=== PATIENT | female | born 1985 | race Caucasian/White ===

== ENCOUNTER 2020-07-13 17:27 | Inpatient (IN) | payer MEDICAID, SELFPAY ==
[2020-07-13 17:28] VITALS: BP 149/84; PULSE 106; RESP 16; TEMP 35.3; O2SAT 100; BMI 29.2
[2020-07-13 19:33] VITALS: BMI 29.2
--- NOTE | 2020-07-13 20:00 | ED.VISSUMM ---
- ER Visit Summary Date of Service: 07/13/20 Chief Complaint: Here for detox from heroin History of Present Illness: The patient is a 35 F with no primary care physician. She reports that she has been using heroin daily for the past 6 months. States that typically she snorts this. However, she does use intravenously occasionally. Her last use was yesterday and she injected into the anterior surface of her right leg. Patient reports that she is never been through detox. However, in the middle of 2019 she was on Suboxone for a period of time. Patient reports that she feels as though she is starting to go through withdrawal. She has chills and a dull headache is 4-10 in severity. She does have a history of similar headaches. Physical Examination: Vitals: Stable. Afebrile. General: Well-nourished and well-developed. Head: Normocephalic atraumatic. Neck: Supple, no lymphadenopathy. No JVD. Nontender. Cardiovascular: Regular rate and rhythm. No murmurs. Respiratory: No respiratory distress. Clear to auscultation bilaterally. Abdominal: Soft, nontender, nondistended, normal bowel sounds. No guarding, rebound, or peritoneal signs. Back: Nontender. Extremities: Nontender, no edema. Skin: Normal color, no rash. Track braga to the anterior right leg with no evidence of infection. No induration or fluctuance. Neurologic: Alert and oriented ?3. Cranial nerves II through XII are intact. Normal strength and sensation. Psych: Normal affect. Test Results: [] Emergency Department Course and Treatment: Patient is resting comfortably. Treatment Plan: Patient was discussed with Dr. Delgado. She will be admitted the hospital for further evaluation and treatment. Disposition: Admitted in stable condition. Impression: 1. Opiate abuse. This note was generated with [employer] software. It may contain incorrect words, spelling, and punctuation that were not noted in review of the chart prior to signing ED Disposition - Plan for ED Patient: Referrals: Care Physician,No Primary [Primary Care Provider] -
[2020-07-13 20:06] VITALS: BMI 29.2
--- NOTE | 2020-07-13 20:19 | PCM.HP.STD ---
Problem List (1) Opiate withdrawal Status: Acute (2) Heroin use Status: Chronic (3) IV drug abuse Status: Chronic (4) Tobacco use Status: Chronic History of Present Illness Date of Admission: 07/13/20 Chief Complaint: Acute Opiate Withdrawal The patient is a 35 y/o F w/ PMHx: History of opiate abuse with ongoing heroin initially snorted now transition to IV over the last 6 months, Tobacco use who presents to the [facility] ED on 07/13/20 with acute onset withdrawal symptoms over the last several hours with last IV 1 g administration approximately 1 AM on day of ED presentation noting that she normally does 1/2 to 1 g heroin IV daily but cannot be certain that there is nothing mixed in with it she notes now with onset significant abdominal cramping, generalized body aches and pains, rhinorrhea, piloerection, fatigue, restless leg, sweating, doubly flushed appearance. Patient interested in attaining clean status. She does note being nervous about admission and states that she was been anxious about using Subutex. Work-up in the ED included T 95.5 temporally, heart rate 106, BP 149/84, respiratory rate 16, on her percent on room air, pending CBC, CMP, serum testing and did note to patient that as long as serum testing would plan continued admission as noted, UDS with positive opiates otherwise negative, pending ethyl alcohol level. Past Medical History Past Medical History (Chronic Problems): Chronic Problems Heroin use (Chronic) IV drug abuse (Chronic) Tobacco use (Chronic) Allergies Penicillins [PCN] Allergy (Verified 07/13/20 17:29) Rash Home Medications: Ambulatory Orders Medication Instructions Recorded NK 07/13/20 Surgical History: no surgical history Psychiatric History: No pertinent psych hx - Patient denies anxiety depression. PRACTICE CONSULTANT History: No pertinent PRACTICE CONSULTANT history Lives: Alone Smoking Status: Current every day smoker - Patient with ongoing 3/4 to 1 pack/day cigarette tobacco usage. Tobacco Use: Cigarettes Alcohol: None Drugs: Heroin - Patient reports 1/2 to 1 g IV heroin daily, prior to this snorted, reporting over the last 6 months usage. - *Family History Maternal History Items: Stroke Paternal History Items: - - Patient denies marked paternal family history including heart disease, diabetes, cancer but does report has chronic back pain and uses chronic pain regimen. Review of Systems Constitutional: Reports: Anorexia, Malaise, Weakness, Fatigue. Denies: Chills, Fever, Weight Change HEENT: Reports: Nasal Congestion, Post Nasal Drip, Sinus Congestion. Denies: Head Aches, Sinus Drainage Cardiovascular: Denies: Chest Pain, Palpitations Respiratory: Denies: Cough, Shortness of breath at rest, Sputum production Gastrointestinal: Reports: Abdominal Pain, Nausea. Denies: Vomiting Genitourinary: Denies: Dysuria Musculoskeletal: Reports: Joint Pain, Muscle pain. Denies: Joint Tenderness Skin: Reports: - - Significantly flush skin color, track braga, no obvious infected regions.. Denies: Rash, Wounds Neurological: Reports: - - Restlessness, mild agitation.. Denies: Focal weakness, Numbness, Tingling Psychiatric: Denies: Anxiety, Depression, Homicidal Ideations, Suicidal Ideations Hematologic/ Lymphatic: Denies: Easy Bruising, Easy Bleeding VTE Information - Inpt Only VTE Present on Admission: No VTE Mechan Device Prophylaxis: None VTE Pharm Prophylaxis ordered?: No Reason prophylaxis not ordered:: Treatment Not Indicated Subjective: Patient seated upright in the ED bed, tearful, anxious, flushed appearance, restless. Objective: Physical Examination: General: awake, alert, oriented x 3 and cooperative, seated upright in the ED bed, restless, mildly agitated, tearful. Skin: normal color, turgor, no icterus, cyanosis except notable diffuse extremity track braga. HEENT: AT/NC, EOMI, PERRLA, dry MM, no carotid bruits or JVD noted. Lungs: CTA bilaterally, moderate effort, mild decrease BL bases, no rales, ronchi or wheezing. Heart: Tachycardic with regular rhythm; no gallop, rub audible. Abdomen: soft, mild generalized discomfort with palpation, ND, hyperactive BS, no HSM. Extremities: no cyanosis, clubbing, or edema, see skin. Neurological: patient awake, alert, oriented as noted; cognitive function intact; pupils equally reactive to light and accomodation; cranial nerves II-XII grossly normal, moving all 4 extremities, no focal deficits, strength preserved although complicated by acute withdrawal presentation, restless, flushed, diaphoretic appearance. Psychiatric: affect appears anxious, tearful, restless, denies any underlying history of anxiety or depression. - Physical Exam Vitals/I&O's: Vital Signs Temp Pulse Resp BP Pulse Ox 95.5 F L 106 H 16 149/84 H 100 07/13/20 17:28 07/13/20 17:28 07/13/20 17:28 07/13/20 17:28 07/13/20 17:28 Oxygen Delivery Method Room Air Weight: 170 lb Body Mass Index (BMI) 29.2 Laboratory Results 07/13/20 20:00: Urine Opiates Screen Pending, Urine Methadone Screen Pending, Ur Barbiturates Screen Pending, Ur Phencyclidine Scrn Pending, Ur Amphetamines Screen Pending, U Methamphetamin-MDMA Pending, U Benzodiazepines Scrn Pending, Urine Cocaine Screen Pending, U Cannabinoids Screen Pending, Ur Drug Screen Comment Assessment/Plan All Active Problems Opiate withdrawal (Acute) The patient is a 35 y/o F w/ PMHx: History of opiate abuse with ongoing heroin initially snorted now transition to IV over the last 6 months, Tobacco use who presents to the [facility] ED on 07/13/20 with acute onset withdrawal symptoms over the last several hours with last IV 1 g administration approximately 1 AM on day of ED presentation with acute opiate withdrawal symptoms. 1. Acute Opiate Withdrawal: Will admit to [facility], routine labs including CBC, CMP, testing pending upon evaluation, UDS with positive opiates only, pending of alcohol level, if screening in the emergency room is negative will initiate and continue on protocol with tapering course of Subutex, as needed tylenol, ibuprofen, bowel regimen, gabapentin, Bentyl, Vistaril, methocarbamol, clonidine, PRN nightly trazodone for insomnia, IV fluids, IV antiemetics. Once patient clinically improved and completion of taper nearing will plan consultation with case management for transition to next level of rehabilitation care. 2. Polysubstance Abuse, IVDA Hx: Given patient transition to IV drug abuse discussed and patient is amenable to obtain HIV and hepatitis panel. Noted that patient currently not candidate for hep C treatment currently as needs to be clean, sober x 6 months, documented attendance NA or AA meetings, counseling and ongoing negative drug screens. 3. Tobacco Abuse: Encouraged cessation, inpatient consultation per RT, NR if desired. 4. DVT prophylaxis: Low risk, encourage ambulation. Inpatient E&M: 53392 Init Hosp L3
--- NOTE | 2020-07-13 20:29 | ED.RN ---
CALLED 180 PT NAVIGATOR TO ADVISE OF THIS ADMISSION
[2020-07-13 20:49] LABS: Amphetamine Urine VISTA NEGATIVE (<1000 ng/mL); Barbiturate Urine VISTA NEGATIVE (< 200 ng/mL); Benzodiazepine Urine VISTA NEGATIVE (< 200 ng/mL); Cocaine Urine VISTA NEGATIVE (< 300 ng/mL); Ecstacy Urine VISTA NEGATIVE (< 500 ng/mL); Methadone Urine VISTA NEGATIVE (< 300 ng/mL); PCP Urine VISTA NEGATIVE (< 25 ng/mL); THC Urine VISTA NEGATIVE (< 50 ng/mL); Vista UDS pH Range 5
[2020-07-13 21:15] VITALS: BP 145/89; PULSE 81; RESP 16; TEMP 36.6; O2SAT 98
[2020-07-13 21:16] LABS: Internal QC Validated? YES +Cl - CLEAR BKGD; Pregnancy, Serum, hCG Quali. NEGATIVE Negative
[2020-07-13 21:18] LABS: Absolute Lymphocyte Count 2.67 X10^3/uL (0.83-4.51); Basophil# 0.05 X10^3/uL; Basophil% 0.5 % (0-1); Eosinophil# 0.07 X10^3/uL; Eosinophils% 0.7 % (0-5); Hematocrit 43.1 % (37-47); Lymphocyte # 2.67 X10^3/ul (4.0); Lymphocyte % 28.4 % (19-41); Mean Corp Hgb Conc 32.5 g/dL (32-36); Mean Corpuscular Hgb 29.1 pg (27.0-32.0); Mean Corpuscular Volume 89.6 fL (81-99); Mean Platelet Vol. 9.5 fl (6.2-12.0); Monocyte# 0.63 X10^3/uL; Monocyte% 6.7 % (0-10); NRBC Flagged by Analyzer 0 % (0-5); Neutrophil # 5.95 X10^3/uL (2.7-7.7); Neutrophil % 63.4 % (47-70); Platelet Count 315 K/mm3 (150-450); RBC Distribution Width CV 13.5 % (11.6-14.6); RBC Distribution Width SD 44.2 fl (35.1-43.9); Red Blood Count 4.81 M/mm3 (4.2-5.4); White Blood Count 9.4 K/mm3 (4.4-11.0)
[2020-07-13 21:25] LABS: ALB/GLOB Ratio 0.8 RATIO (0.9-2.4); AST(SGOT) 18 U/L (15-37); Alanine Aminotransfer ALT/SGPT 20 U/L (13-56); Albumin, Serum 3.5 g/dL (3.2-5.0); Alkaline Phosphatase 103 U/L (45-117); Anion Gap 7 (5-15); BUN 4 mg/dL (7-18); BUN/Creat Ratio 6.4 RATIO (10-20); Chloride 103 mmol/L (98-107); Creatinine, Serum 0.62 mg/dL (0.55-1.02); EST Glomerular Filtration Rate 115 mL/min (>60); Est Glom Filt Rate - Afr Amer 139 mL/min (>60); Estimated Creatinine Clearance 109.36 ml/min; Globulin 4.3 g/dL (2.2-4.2); Glucose 93 mg/dL (74-106); Potassium 4.2 mmol/L (3.5-5.1); Protein, Total 7.8 g/dL (6.4-8.2); Sodium Level 136 mmol/L (136-145)
[2020-07-13 21:51] VITALS: BMI 30.7
[2020-07-13 22:02] VITALS: O2SAT 98
[2020-07-13 22:04] VITALS: BP 124/85; PULSE 90; RESP 16; TEMP 36.9; O2SAT 99
[2020-07-13] MEDS: Gabapentin 300 MG Capsule PO (23:24)
[2020-07-13 23:58] LABS: HIV - WCH Non-Reactive (Nonreactive)
[2020-07-14] MEDS: traZODone 100 MG Tablet PO (00:37)
[2020-07-14] MEDS: Acetaminophen 500 MG Tablet PO ×2 (00:41→16:46)
[2020-07-14] MEDS: Ibuprofen 600 MG Tablet PO ×2 (00:41→16:46)
[2020-07-14 03:49] VITALS: BP 101/69; PULSE 66; RESP 16; TEMP 36.8; O2SAT 96
[2020-07-14 07:30] VITALS: O2SAT 95
[2020-07-14 09:31] VITALS: BP 136/111; PULSE 91; RESP 16; TEMP 36.7; O2SAT 97
[2020-07-14] MEDS: cloNIDine HCl 0.1 MG Tablet PO ×2 (12:56→21:01)
--- NOTE | 2020-07-14 14:00 | CASEMGMT ---
Social Work Note SW placed a call to [facility] Treatment Navigator and left message to confirm [facility] is aware of pt's admission to [facility]. Leigh Knott SERVICE OBSERVER, TEACHER ASSOCIATE
[2020-07-14 15:30] VITALS: BP 114/73; PULSE 80; RESP 16; TEMP 37.3; O2SAT 96
[2020-07-14] MEDS: Gabapentin 300 MG Capsule PO (16:46)
--- NOTE | 2020-07-14 17:36 | PCM.PROGNOTE ---
Patient Problems: Active and Suspected Problems Opiate withdrawal (Acute) Subjective: Patient was seen and examined today, she tells me that she does not want to take Subutex, she is afraid that she will have a reaction from the Subutex and go through worse withdrawal symptoms. Patient states she has a prescription for Subutex at home and is planning on going back on Subutex after she is withdrawing from opioids. Patient just wants to be treated symptomatically while she is in the hospital. - Physical Exam Vitals/I&O's: Vital Signs Temp Pulse Resp BP Pulse Ox 99.1 F 80 16 114/73 96 07/14/20 15:30 07/14/20 15:30 07/14/20 15:30 07/14/20 15:30 07/14/20 15:30 Oxygen Delivery Method Room Air Weight: 81.3 kg Body Mass Index (BMI) 30.7 Intake and Output for Last 24 Hours 07/12/20 07/13/20 07/14/20 23:59 23:59 23:59 Intake Total 1300 / 1300 Balance 1300 / 1300 General: Alert, Oriented x3, Cooperative, No apparent distress, Well developed, Well nourished HEENT: Atraumatic, PERRLA, EOMI, Normocephalic Oral: Moist Mucosa Neck: Supple, No JVD, Trachea Midline, Thyroid Normal Size and Texture Lungs: Clear to auscultation, Normal air movement, No rhonchi, No wheeze, No rales Cardiovascular: Regular rate, Regular Rhythm, Normal S1, Normal S2, No murmurs, PMI Normal, No rub noted, No Gallop Abdomen: Bowel Sounds Present, Soft, Non Tender, Non-Distended Extremities: No clubbing, No cyanosis, No edema, Capillary Refill Less than 3 Seconds Skin: No rashes, No breakdown Musculoskeletal: No Tenderness to Palpation of Joints or Extremities Neurological: Cranial nerves II-XII grossly intact, Neuro grossly intact, Sensory exam intact to light touch and pain, Coordination normal Psych/Mental Status: Normal Affect, Appropriate, Alert and oriented to time, place, person, mood and affect Laboratory Results 07/13/20 20:00: Urine Opiates Screen POSITIVE H, Urine Methadone Screen NEGATIVE, Ur Barbiturates Screen NEGATIVE, Ur Phencyclidine Scrn NEGATIVE, Ur Amphetamines Screen NEGATIVE, U Methamphetamin-MDMA NEGATIVE, U Benzodiazepines Scrn NEGATIVE, Urine Cocaine Screen NEGATIVE, U Cannabinoids Screen NEGATIVE, Ur Drug Screen Comment 07/13/20 20:57: WBC 9.4, RBC 4.81, Hgb 14.0, Hct 43.1, MCV 89.6, MCH 29.1, MCHC 32.5, RDW Std Deviation 44.2 H, RDW Coeff of Chase 13.5, Plt Count 315, MPV 9.5, Immature Gran % (Auto) 0.300, Neut % (Auto) 63.4, Lymph % (Auto) 28.4, Schleicher % (Auto) 6.7, Eos % (Auto) 0.7, Baso % (Auto) 0.5, Absolute Neuts (auto) 6.0, Absolute Lymphs (auto) 2.67, Nucleated RBC % 0 07/13/20 20:57: Sodium 136, Potassium 4.2, Chloride 103, Carbon Dioxide 26.0, Anion Gap 7, BUN 4 L, Creatinine 0.62, Estim Creat Clear Calc 109.36, Est GFR (MDRD) Af Amer 139, Est GFR (MDRD) Non-Af 115, BUN/Creatinine Ratio 6.4 L, Glucose 93, Calcium 9.0, Total Bilirubin 0.30, AST 18, ALT 20, Alkaline Phosphatase 103, Total Protein 7.8, Albumin 3.5, Globulin 4.3 H, Albumin/Globulin Ratio 0.8 L 07/13/20 20:57: Ethyl Alcohol 5.0 07/13/20 20:57: Serum , Qual NEGATIVE 07/13/20 20:57: Hepatitis A IgM Ab Pending, Hepatitis A Ab Total Pending, Hep Bs Antigen Pending, Hep B Core Total Ab Pending, Hep B Core IgM Ab Pending 07/13/20 20:57: HIV 1&2 Antibody Non-Reactive Current Medications Acetaminophen (Acetaminophen 500 Mg Tablet) 500 mg PO Q4H PRN PRN PRN Reason: Temp > 100.4 F Last Admin: 07/14/20 16:46 Dose: 500 mg Documented by: Albuterol Sulfate (Albuterol 2.5 Mg/3 Ml Vial.Neb.) 2.5 mg INHALATION Q2H PRN PRN PRN Reason: Dyspnea, wheezing Buprenorphine HCl (Buprenorphine Hcl 2 Mg Tab.Subl) 0 mg SL Q8H BEA; Taper Stop: 07/16/20 21:43 Clonidine (Clonidine Hcl 0.1 Mg Tablet) 0.1 mg PO Q8H PRN PRN PRN Reason: RESTLESSNESS Last Admin: 07/14/20 12:56 Dose: 0.1 mg Documented by: Gabapentin (Gabapentin 300 Mg Capsule) 300 mg PO Q6H PRN PRN PRN Reason: ANXIETY Last Admin: 07/14/20 16:46 Dose: 300 mg Documented by: Ibuprofen (Ibuprofen 600 Mg Tablet) 600 mg PO Q8H PRN PRN PRN Reason: PAIN 1-10 Last Admin: 07/14/20 16:46 Dose: 600 mg Documented by: Methocarbamol (Methocarbamol 750 Mg Tablet) 1,500 mg PO Q6H PRN PRN PRN Reason: MUSCLE SPASM Nicotine (Nicotine 21 Mg Patch) 21 mg TD DAILY BEA Last Admin: 07/14/20 09:09 Dose: 21 mg Documented by: Ondansetron HCl (Ondansetron 8 Mg Tablet) 8 mg PO Q8H PRN PRN PRN Reason: NAUSEA Trazodone HCl (Trazodone 100 Mg Tablet) 100 mg PO QHS PRN PRN PRN Reason: SLEEP Medical Necessity - Tobacco Use Smoking Status: Current every day smoker Tobacco Use: Cigarettes Assessment/Plan All Active Problems Opiate withdrawal (Acute) #1 acute opiate withdrawal-continue to provide supportive care and treat symptoms #2 opiate addiction-180 will talk with the patient concerning follow-up after discharge from the hospital Inpatient E&M: 90262 [facility] Hosp L2
[2020-07-14 20:59] VITALS: BP 111/55; PULSE 91; RESP 16; TEMP 37.3; O2SAT 98
[2020-07-15] MEDS: traZODone 100 MG Tablet PO (00:26)
[2020-07-15 02:13] VITALS: BP 105/67; PULSE 64; RESP 18; TEMP 36.6; O2SAT 100
[2020-07-15] MEDS: Gabapentin 300 MG Capsule PO ×2 (02:16→10:38)
[2020-07-15] MEDS: Methocarbamol 750 MG Tablet 1500 MG PO (02:18)
[2020-07-15 10:21] VITALS: BP 97/59; PULSE 84; RESP 18; TEMP 36.9; O2SAT 98
--- NOTE | 2020-07-15 10:21 | NURSING ---
Betina from 180 in with pt at this time.
[2020-07-15] MEDS: Ibuprofen 600 MG Tablet PO (10:37)
--- NOTE | 2020-07-15 11:00 | ADDICTION ---
This field underwriter met with PT in her room to complete ASAM, MSE and DUDIT assessments and to plan for d/c. All assessments completed, faxed to [facility] and placed in PT's chart. PT plans to f/u with her counselor and MAT provider through [facility] upon d/c. PT did not request transportation coordination. PT refused PCP referral. PT refused AoD tx referral.
--- NOTE | 2020-07-15 11:26 | DCINST_ITS ---
- Discharge Diagnoses Current Active Problems: Current Active and Chronic Problems Opiate withdrawal (Acute) Heroin use (Chronic) IV drug abuse (Chronic) Tobacco use (Chronic) You will use the following diet at home:: No restrictions Your food should be the consistency of: Regular Your liquids should be the consistency of: Regular/Thin Discharge Activity: Return to Normal Activity Allergies/Adverse Reactions: Allergies Penicillins [PCN] Allergy (Verified 07/13/20 17:29) Rash Medications to take at Discharge NK 07/13/20 Primary Care Physician: Care Physician,No Primary [Primary Care Provider] - Test Results: Test results from this visit will be discussed in further detail at your follow- up appointment, if applicable. Please Follow Up With: your Addiction physician When: as scheduled
--- NOTE | 2020-07-15 12:05 | PHA.DC.MR ---
Pharmacy Service has performed discharge medication reconciliation for this patient. Patient has no new medications or home meds at time of dc review. Home Medications NK 07/13/20 The patient's discharge medication list was reviewed for discrepancies and discrepancies were resolved.
--- NOTE | 2020-07-15 18:22 | DS.PCM_ITS ---
Discharge Date and Diagnosis - Problem List Patient Problems: Active and Suspected Problems Opiate withdrawal (Acute) Date of Admission: 07/13/20 Date of Discharge: 07/15/20 - Primary Discharge Diagnosis Acute Problems: Active Problems #1 acute opiate withdrawal #2 opiate addiction-heroin - Secondary Discharge Diagnosis Chronic Problems: Chronic Problems Heroin use (Chronic) IV drug abuse (Chronic) Tobacco use (Chronic) Hospital Course and Treatment Operations: None Procedures: None Summary of Care Provided: The patient is a 35 year old F was seen in the emergency room at [facility] with request for admission for detox from heroin. Patient stated that she had been using heroin daily for the past 6 months. Patient stated that she had Suboxone at home but was afraid of taking it due to the fact it would make her withdrawal from heroin worse-she had this experience in the past. Patient's labs were unremarkable except for a tox screen which was positive for opiate. Patient was admitted to [place] [id number], she refused Suboxone and she was treated symptomatically with the medications on the opiate detox order template. Patient was seen in consultation by 180, patient stated that she preferred to do online counseling-she stated that that is where she gets her prescription for Suboxone. On 07/15/2020, patient was seen and examined:General: Alert, Oriented x3, Cooperative, No apparent distress, Well developed, Well nourished HEENT: Atraumatic, PERRLA, EOMI, Normocephalic Oral: Moist Mucosa Neck: Supple, No JVD, Trachea Midline, Thyroid Normal Size and Texture Lungs: Clear to auscultation, Normal air movement, No rhonchi, No wheeze, No rales Cardiovascular: Regular rate, Regular Rhythm, Normal S1, Normal S2, No murmurs, PMI Normal, No rub noted, No Gallop Abdomen: Bowel Sounds Present, Soft, Non Tender, Non-Distended Extremities: No clubbing, No cyanosis, No edema, Capillary Refill Less than 3 Seconds Skin: No rashes, No breakdown Musculoskeletal: No Tenderness to Palpation of Joints or Extremities Neurological: Cranial nerves II-XII grossly intact, Neuro grossly intact, Sensory exam intact to light touch and pain, Coordination normal Psych/Mental Status: Normal Affect, Appropriate, Alert and oriented to time, place, person, mood and affect Patient was discharged in stable condition on 07/15/2020 Patient Problems: Active and Suspected Problems Opiate withdrawal (Acute) - Physical Exam Vitals/I&O's: Vital Signs Temp Pulse Resp BP Pulse Ox 98.4 F 84 18 97/59 L 98 07/15/20 10:21 07/15/20 10:21 07/15/20 10:21 07/15/20 10:21 07/15/20 10:21 Oxygen Delivery Method Room Air Weight: 81.3 kg Body Mass Index (BMI) 30.7 Intake and Output for Last 24 Hours 07/13/20 07/14/20 07/15/20 23:59 23:59 23:59 Intake Total 1300 / 1300 480 / 480 Balance 1300 / 1300 480 / 480 Discharge Activity: Return to Normal Activity Home Medications: Medications to take at Discharge NK 07/13/20 Primary Care Physician: Care Physician,No Primary [Primary Care Provider] - Please Follow Up With: your Addiction physician When: as scheduled Disposition: Home Minutes spent on discharge:: 31 Patient Condition:: Stable Medical Necessity - Tobacco Use Smoking Status: Current every day smoker Tobacco Use: Cigarettes Meaningful Use Info Meaningful Use Diagnoses (Choose all that apply): None applicable Inpatient E&M: 38182 Disch Hosp
[2020-07-16 09:36] LABS: HEPATITIS B SURFACE AG Negative (Negative); Hepatitis A AB, Total Negative (Negative); Hepatitis A IgM Antibody Negative (Negative); Hepatitis B Core AB IgM Negative (Negative); Hepatitis B Core Ab Total Negative (Negative); Hepatitis C Ab <0.1 s/co ratio (0.0-0.9)
[2020-07-16 10:47] LABS: Hep B Surface Antibodies Non Reactive (.)
== END 2020-07-15 12:15 | disposition home or self-care (01) | DRG 773 ==
LOC: ED 19:03 → MS3 20:51
PROVIDERS: Admitting Provider Family Medicine; Emergency Provider Emergency Medicine; Visit Provider Internal Medicine
DX: F11.23 Opioid dependence with withdrawal (principal); F17.210 Nicotine dependence, cigarettes, uncomplicated
CPT/HCPCS: 36415; 80053; 80307; 82077; 84703; 85025; 86703; 86704; 86705; 86706; 86708; 86709; 86803; 87340; 99283

== ENCOUNTER 2020-07-16 00:33 | Observation (INO) | payer MEDICAID, SELFPAY ==
[2020-07-16] VITALS (9 sets, daily range): BP systolic 97–135; BP diastolic 64–89; PULSE 71–99; RESP 15–18; TEMP 36.3–36.9; O2SAT 94–99; BMI 31.4; BMI 30.2
--- NOTE | 2020-07-16 00:39 | ED.VIS.GEN ---
History of Present Illness Chief Complaint: General Illness Informant: Patient Onset: Today Context: Gradual Onset Timing: Continuous Current Severity: Moderate Maximum Severity: Moderate Narrative: The patient is a 35-year-old female with history of opiate abuse presents to the emergency department requesting detox. The patient was actually admitted 3 days ago. She spent approximately 48 hours in the hospital on the detox unit. She states that she was doing well. She was discharged on the afternoon of the . She states she got home. She began to have increasing withdrawal symptoms. She states she felt tremulous and nauseated. She states that she had diarrhea and chills. She states she is feeling very anxious. She was concerned that she was going to use again. She did try Suboxone. She took 2 separate 1 mg doses and feels like it made her symptoms worse. She returns hoping for readmission to the detox program. She is not suicidal or homicidal. Prior similar symptoms: Yes Recent Illness/Hospitalization: Yes Past Medical History - Allergies and Home Meds Allergies/Adverse Reactions: Allergies Penicillins [PCN] Allergy (Verified 07/13/20 17:29) Rash Primary Care Physician: Care Physician,No Primary [Primary Care Provider] - Prior records reviewed: Yes Past Medical History: - - History of opiate abuse Surgical History: no surgical history Smoking Status: Current every day smoker - Family History Maternal Family History: Reports: Stroke Paternal Family History: Reports: - - Patient denies marked paternal family history including heart disease, diabetes, cancer but does report has chronic back pain and uses chronic pain regimen. Review of Systems General: Reports: Chills Eyes: Denies: Visual changes - bilaterally, Diplopia ENT: Denies: Rhinorrhea, Sore throat Cardiovascular: Denies: Chest pain, Palpitations Respiratory: Denies: Dyspnea, Cough, Dyspnea on exertion Gastrointestinal: Reports: Nausea, Diarrhea Genitourinary: Denies: Dysuria, Hematuria, Frequency Musculoskeletal: Denies: Back pain, Extremity Pain Skin: Denies: Rash, Wounds Neurological: Denies: Headache, Weakness, Numbness Physical Exam Inital Vital Signs reviewed: Yes General: Well nourished, Well developed, No Acute Distress Head: Normocephalic, Atraumatic Eyes: Perrl, EOMI ENT: Moist mucous membranes, No rhinorrhea Neck: Supple, Nontender Cardiovascular: Regular rate, Regular rhythm, No murmurs Respiratory: No distress, CTA bilaterally, Chest nontender Abdomen: Soft, Nontender, Nondistended, Normal bowel sounds Back: Nontender, Normal Inspection Extremities: Nontender, No edema Skin: Normal color, No rash Neurological: Alert, Oriented x3, Cranial nerves II-XII grossly intact, Normal Strength, Normal Sensation Psychological: Normal affect, Normal Mood Diagnostic/Tx/Re-eval - Medical Decision Making Patient presents with persistent withdrawal symptoms. She states that they worsened after her discharge. I did discuss the patient with the hospitalist. At this point, the patient will be evaluated for readmission to the detox program after labs are obtained. Impression 1. Opioid dependence and withdrawal ED Disposition - Plan for ED Patient: Referrals: Care Physician,No Primary [Primary Care Provider] -
--- NOTE | 2020-07-16 00:42 | HP.PCM_ITS ---
Problem List (1) Opiate withdrawal Status: Acute (2) Heroin use Status: Chronic (3) IV drug abuse Status: Chronic (4) Tobacco use Status: Chronic History of Present Illness Date of Admission: 07/16/20 Chief Complaint: Recurrent worsening opiate withdrawal symptoms. The patient is a 35 y/o F w/ PMHx: History of opiate abuse with ongoing heroin initially snorted now transition to IV over the last 6 months, Tobacco use recently admitted on 07/13/20 for acute opiate withdrawal, apparently refused her Subutex but took the other as needed agents and was discharged on 07/15/20 with planned online follow-up counseling instead of 180 per patient preference with upon discharge to home self administration of suboxone with then onset worsened withdrawal symptoms including increased tremors, nausea, diarrhea, increased anxiety with self administration of 2 separate 1 mg doses of Suboxone to attempt to dereje her symptoms however they worsened prompting return to the [facility] ED on 07/16/20 secondary to concerns that she may start using heroin again if she does no prolong her withdrawal treatment. Work-up in the ED included included T 97.3, heart 99, BP 135/81, respiratory rate 15, 99% on room air, negative urine testing, urine drug screen pending. Attempted repeat CBC, CMP however patient difficult stick. Upon patient presentation discussed several items including encourage Subutex usage given unsuccessful initial treatment given recurrent symptoms following her discharge and again strong reminder to avoid using the Suboxone after discharge until she has followed up with 180. Encouraged her strongly not to do online counseling and again to follow-up in person with 180 to improve her chances. Past Medical History Past Medical History (Chronic Problems): Chronic Problems Heroin use (Chronic) IV drug abuse (Chronic) Tobacco use (Chronic) Allergies Penicillins [PCN] Allergy (Verified 07/13/20 17:29) Rash Home Medications: Ambulatory Orders Medication Instructions Recorded NK 07/13/20 Surgical History: no surgical history Psychiatric History: No pertinent psych hx - Patient denies anxiety depression. 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 Tobacco Use: Cigarettes Alcohol: None Drugs: Heroin - Patient with ongoing 3/4 to 1 pack/day cigarette tobacco usage prior to recent admission, clean discharge discharge except did take suboxone. - *Family History Maternal History Items: Stroke Paternal History Items: - - Patient denies marked paternal family history including heart disease, diabetes, cancer but does report has chronic back pain and uses chronic pain regimen. Review of Systems Constitutional: Reports: Anorexia, Chills, Malaise, Weakness, Fatigue. Denies: Fever, Weight Change HEENT: Reports: Nasal Congestion, Sinus Congestion. Denies: Head Aches, Sinus Drainage Cardiovascular: Denies: Chest Pain, Palpitations Respiratory: Denies: Cough, Shortness of breath at rest, Sputum production Gastrointestinal: Reports: Abdominal Pain, Nausea. Denies: Vomiting Genitourinary: Denies: Dysuria Musculoskeletal: Reports: Joint Pain, Muscle pain. Denies: Joint Tenderness Skin: Denies: Rash, Wounds Neurological: Denies: Numbness, Tingling, Focal weakness Psychiatric: Denies: Anxiety, Depression, Homicidal Ideations, Suicidal Ideations Hematologic/ Lymphatic: Denies: Easy Bruising, Easy Bleeding VTE Information - Inpt Only VTE Present on Admission: No VTE Mechan Device Prophylaxis: None VTE Pharm Prophylaxis ordered?: No Reason prophylaxis not ordered:: Treatment Not Indicated Subjective: Seated upright in the ED bed, attempting to obtain labs, currently not successful, mildly agitated, notes starting to have body aches. Objective: Physical Examination: General: awake, alert, oriented x 3 and cooperative, seated upright in the ED bed, restless, mildly agitated. Skin: normal color, turgor, no icterus, cyanosis except diffuse extremity track braga. HEENT: AT/NC, EOMI, PERRLA, dry MM, no carotid bruits or JVD noted. Lungs: CTA bilaterally, moderate effort, mild decrease BL bases, no rales, ronchi or wheezing. Heart: Currently mildly tachycardic with regular rhythm; no gallop, rub audible. Abdomen: soft, NTTP currently, ND, mildly hyperactive BS, no HSM. Extremities: no cyanosis, clubbing, or edema, see skin. Neurological: patient awake, alert, oriented as noted; cognitive function intact; pupils equally reactive to light and accomodation; cranial nerves II-XII grossly normal, moving all 4 extremities, no focal deficits, strength preserved, restless, reports tremors but none present upon evaluation. Psychiatric: affect appears mildly agitated, discussed re-presentation and goals at length, denies anxiety or depression. - Physical Exam Vitals/I&O's: Vital Signs Temp Pulse Resp BP Pulse Ox 97.3 F L 99 15 135/81 H 99 07/16/20 00:35 07/16/20 00:35 07/16/20 00:35 07/16/20 00:35 07/16/20 00:35 Oxygen Delivery Method Room Air Weight: 183 lb 3.266 oz Body Mass Index (BMI) 31.4 Assessment/Plan All Active Problems Opiate withdrawal (Acute) The patient is a 35 y/o F w/ PMHx: History of opiate abuse with ongoing heroin initially snorted now transition to IV over the last 6 months, Tobacco use recently admitted on 07/13/20 for acute opiate withdrawal, discharged on 07/15/20 with upon discharge to home self administration of suboxone with then onset worsened withdrawal symptoms prompting return to the [facility] ED on 07/16/20 secondary to concerns that she may start using heroin again. 1. Acute Opiate Withdrawal: Given patient representation and concerns for possible reuse of heroin will readmit to medical surgical floor, pending repeat ED labs with negative urine testing and reporting currently on her cycle, pending UDS, will admit to medical surgical floor, strongly encouraged Subutex protocol otherwise noted to her she could be treated outpatient with the other agents and would not require admission, as needed tylenol, ibuprofen, bowel regimen, gabapentin, Bentyl, Vistaril, methocarbamol, clonidine, PRN nightly trazodone for insomnia, IV fluids, IV antiemetics. We will again consult case management. During prior admission did discuss at length patient avoidance of buprenorphine/naloxone as she is not currently under treatment from a physician and defeats the reason for her admission to avoid even these items. 2. Polysubstance Abuse, IVDA Hx: During prior admission hepatitis panel obtained and currently pending, HIV was nonreactive. Did discuss with patient given recent transition to IV usage that if her hepatitis panel was positive for hepatitis C she would need to be clean and sober for at least 6 months with documented meeting attendance to become a candidate for treatment. 3. Tobacco Abuse: Encouraged cessation, inpatient consultation per RT, NR if desired. 4. DVT prophylaxis: Low risk, encourage ambulation. Inpatient E&M: 82181 Init Hosp L2
[2020-07-16 01:02] LABS: Internal QC Validated? YES +Cl - CLEAR BKGD; Pregnancy, Urine Negative Negative
[2020-07-16 01:34] LABS: Amphetamine Urine VISTA NEGATIVE (<1000 ng/mL); Barbiturate Urine VISTA NEGATIVE (< 200 ng/mL); Benzodiazepine Urine VISTA NEGATIVE (< 200 ng/mL); Cocaine Urine VISTA NEGATIVE (< 300 ng/mL); Ecstacy Urine VISTA POSITIVE (< 500 ng/mL); Methadone Urine VISTA NEGATIVE (< 300 ng/mL); PCP Urine VISTA NEGATIVE (< 25 ng/mL); THC Urine VISTA NEGATIVE (< 50 ng/mL); Vista UDS pH Range 6
[2020-07-16] MEDS: cloNIDine HCl 0.1 MG Tablet PO ×2 (02:04→20:14)
[2020-07-16] MEDS: traZODone 100 MG Tablet PO ×2 (02:05→22:21)
[2020-07-16] MEDS: Gabapentin 300 MG Capsule PO ×2 (02:12→16:23)
[2020-07-16] MEDS: Methocarbamol 750 MG Tablet 1500 MG PO ×3 (03:22→22:21)
[2020-07-16] MEDS: hydrOXYzine PAM 25 MG Capsule 50 MG PO ×3 (03:22→22:23)
--- NOTE | 2020-07-16 12:55 | PCM.HOSP.N ---
Hospitalist Note Seen and examined. 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 Heart rate and blood pressure normal. On exam Abdomen soft, nontender strain. Liver not enlarged Lungs: Clear On buprenorphine based order set for opioid withdrawal syndrome. U tox positive for opioids and methamphetamine.
[2020-07-16] MEDS: Acetaminophen 325 MG Tablet 650 MG PO (20:11)
[2020-07-16] MEDS: Ibuprofen 600 MG Tablet PO (20:14)
[2020-07-17 09:03] VITALS: BP 102/60; PULSE 79; RESP 16; TEMP 36.6; O2SAT 94
[2020-07-17 09:05] VITALS: PULSE 76
[2020-07-17] MEDS: Methocarbamol 750 MG Tablet 1500 MG PO (09:09)
[2020-07-17] MEDS: hydrOXYzine PAM 25 MG Capsule 50 MG PO (09:09)
--- NOTE | 2020-07-17 10:39 | DCINST_ITS ---
- Discharge Diagnoses Current Active Problems: Current Active and Chronic Problems Opiate withdrawal (Acute) Heroin use (Chronic) IV drug abuse (Chronic) Tobacco use (Chronic) You will use the following diet at home:: Regular Your food should be the consistency of: Regular Discharge Activity: May Not Drive Call your doctor if you observe: Fever of 101 or Higher, Coldness, Increased Pain, Numbness or Tingling, Change in Color, Inability to urinate, Inability to have a bowel movement, Using more than one pad per hour, Shortness of breath, Dizziness, Fainting spells, Swelling in the ankles, Chest pain, Prolonged hiccoughing, Increased palpitations (irregular heartbeat), Calf discomfort, Uncontrolled pain Additional Instructions: Follow-up 180 an outpatient for opioid rehab Allergies/Adverse Reactions: Allergies Penicillins [PCN] Allergy (Verified 07/13/20 17:29) Rash Medications to take at Discharge Nicotine [Nicoderm Cq] 21 mg TD DAILY@2200 #30 patch 07/17/20 The following prescriptions were given: Nicotine [Nicoderm Cq] 21 mg TD DAILY@2200 #30 patch Transmission Status: Pending to [employer] #30 Primary Care Physician: Care Physician,No Primary [Primary Care Provider] - Please follow up with your Primary Care Physician in: In 2 weeks Test Results: Test results from this visit will be discussed in further detail at your follow- up appointment, if applicable.
--- NOTE | 2020-07-17 10:40 | DS.PCM_ITS ---
Discharge Date and Diagnosis - Problem List Patient Problems: Active and Suspected Problems Opiate withdrawal (Acute) Date of Admission: 07/16/20 Date of Discharge: 07/17/20 - Primary Discharge Diagnosis Acute Problems: Active Problems Opiate withdrawal (Acute) - Secondary Discharge Diagnosis Chronic Problems: Chronic Problems Heroin use (Chronic) IV drug abuse (Chronic) Tobacco use (Chronic) Hospital Course and Treatment Operations: None Summary of Care Provided: The patient is a 35 year old F with history of chronic opioid use initially snorting heroin but changed to IV heroin in the last 6 months. Patient was recently admitted from 07/13?06/2689 admitted on 07/16. She complain of increased tremor, nausea, diarrhea increased anxiety and took 2 separate doses of 1 mg of Suboxone before coming to ER. She was admitted to [facility] floor. Her cows score was low than what need to be started on buprenorphine. She remained stable and wants to go home. Patient is discharged home. U tox was positive of methamphetamine and opioids. Discharge medication reconciliation done. Discharge follow-up instructions completed. Discharge process discussed with the patient and all questions were answered to patient's satisfaction. Patient Problems: Active and Suspected Problems Opiate withdrawal (Acute) Objective: Patient cough score is 5; less than what needed to be on buprenorphine. Patient wants to go home. Patient was sleepy in the morning but she woke up and wants to go home as per nursing staff as we are not treating with buprenorphine. She was admitted next day after she was recently discharged on 07/15. During previous admission also she did not require buprenorphine. Physical exam General: Alert, Oriented x3, Cooperative HEENT: Atraumatic, PERRLA, EOMI, Normocephalic Oral: No Gingival or Mucosal Lesions/ Ulcerations Neck: Supple, No JVD, Negative Carotid Bruits Lungs: Air entry equal in bilateral lung bases. No crepitation/rhonchi Cardiovascular: Regular rate, Regular Rhythm, Normal S1, Normal S2, No murmurs Abdomen: Bowel Sounds Present, Soft, Non Tender, Non-Distended : No renal angle tenderness. No suprapubic tenderness. Extremities: No edema, Capillary Refill Less than 3 Seconds Skin: No rashes, No breakdown Musculoskeletal: No Tenderness to Palpation of Joints or Extremities Neurological: Cranial nerves II-XII grossly intact, Deep Tendon Reflexes 2+/4 and Symmetrical, Neuro grossly intact Psych/Mental Status: Normal Affect, Appropriate. - Physical Exam Vitals/I&O's: Vital Signs Temp Pulse Resp BP Pulse Ox 98 F 76 16 102/60 94 07/17/20 09:03 07/17/20 09:05 07/17/20 09:03 07/17/20 09:03 07/17/20 09:03 Oxygen Delivery Method Room Air Weight: 175 lb 12.8 oz Body Mass Index (BMI) 30.2 Current Medications Acetaminophen (Acetaminophen 325 Mg Tablet) 650 mg PO Q6H PRN PRN PRN Reason: Pain Score 1-10/Temp > 100.7 F Last Admin: 07/16/20 20:11 Dose: 650 mg Documented by: Al Hydroxide/Mg Hydroxide (Mag Hydrox/Al Hydrox/Simeth 30 Ml Udc) 30 ml PO Q6H PRN PRN PRN Reason: dyspesia Albuterol Sulfate (Albuterol 2.5 Mg/3 Ml Vial.Neb.) 2.5 mg INHALATION Q2H PRN PRN PRN Reason: Dyspnea, wheezing Bisacodyl (Bisacodyl 10 Mg Suppository) 10 mg RC DAILY PRN PRN Reason: Constipation Buprenorphine HCl (Buprenorphine Hcl 2 Mg Tab.Subl) 0 mg SL Q8H BEA; Taper Stop: 07/19/20 01:42 Clonidine (Clonidine Hcl 0.1 Mg Tablet) 0.1 mg PO Q8H PRN PRN PRN Reason: RESTLESSNESS Last Admin: 07/16/20 20:14 Dose: 0.1 mg Documented by: Dicyclomine HCl (Dicyclomine 10 Mg Capsule) 20 mg PO Q6H PRN PRN PRN Reason: Abdominal Discomfort Gabapentin (Gabapentin 300 Mg Capsule) 300 mg PO Q8H PRN PRN PRN Reason: moderate to severe anxiety Last Admin: 07/16/20 16:23 Dose: 300 mg Documented by: Hydralazine HCl (Hydralazine 20 Mg/Ml Vial) 10 mg IV Q4H PRN PRN PRN Reason: SBP > 160 Hydroxyzine Pamoate (Hydroxyzine Cindy 25 Mg Capsule) 50 mg PO Q6H PRN PRN PRN Reason: mild anxiety Last Admin: 07/17/20 09:09 Dose: 50 mg Documented by: Ibuprofen (Ibuprofen 600 Mg Tablet) 600 mg PO Q8H PRN PRN PRN Reason: Pain Score 1-10 Last Admin: 07/16/20 20:14 Dose: 600 mg Documented by: Loperamide HCl (Loperamide 2 Mg Capsule) 2 mg PO Q4H PRN PRN PRN Reason: LOOSE STOOLS Methocarbamol (Methocarbamol 750 Mg Tablet) 1,500 mg PO Q6H PRN PRN PRN Reason: MUSCLE SPASM Last Admin: 07/17/20 09:09 Dose: 1,500 mg Documented by: Nicotine (Nicotine 21 Mg Patch) 21 mg TD DAILY@2200 BEA Ondansetron HCl (Ondansetron 8 Mg Tablet) 8 mg PO Q8H PRN PRN PRN Reason: NAUSEA Senna (Senna Tablet) 2 tablet PO QHS PRN PRN PRN Reason: Constipation Trazodone HCl (Trazodone 100 Mg Tablet) 100 mg PO QHS PRN PRN PRN Reason: INSOMNIA Last Admin: 07/16/20 22:21 Dose: 100 mg Documented by: Discharge Activity: May Not Drive Call your doctor if you observe: Fever of 101 or Higher, Coldness, Increased Pain, Numbness or Tingling, Change in Color, Inability to urinate, Inability to have a bowel movement, Using more than one pad per hour, Shortness of breath, Dizziness, Fainting spells, Swelling in the ankles, Chest pain, Prolonged hiccoughing, Increased palpitations (irregular heartbeat), Calf discomfort, Uncontrolled pain Home Medications: Medications to take at Discharge RX: Nicotine [Nicoderm Cq] 21 mg TD DAILY@0 #30 patch 07/17/20 Following Prescriptions Were Given to Patient: RX: Nicotine [Nicoderm Cq] 21 mg TD DAILY@2200 #30 patch Transmission Status: Received by [employer] #30 Primary Care Physician: Care Physician,No Primary [Primary Care Provider] - Please follow up with your Primary Care Physician in: In 2 weeks Medical Necessity - Tobacco Use Smoking Status: Current every day smoker Tobacco Use: Cigarettes Meaningful Use Info Meaningful Use Diagnoses (Choose all that apply): None applicable Inpatient E&M: 59571 [facility] Hosp
== END 2020-07-17 11:10 | disposition home or self-care (01) ==
LOC: ED 01:05 → MS3 07:30
PROVIDERS: Admitting Provider Family Medicine; Emergency Provider Emergency Medicine; Visit Provider Internal Medicine
DX: F11.23 Opioid dependence with withdrawal (principal); F17.210 Nicotine dependence, cigarettes, uncomplicated
CPT/HCPCS: 80307; 81025; 99218; 99283; 99406; G0378

== ENCOUNTER 2020-11-25 00:33 | Observation (INO) | payer MEDICAID, SELFPAY ==
[2020-07-16 01:50] VITALS: BMI 30.2
[2020-11-25] VITALS (11 sets, daily range): BP systolic 88–136; BP diastolic 52–90; PULSE 67–120; RESP 8–18; TEMP 36.6–37.1; O2SAT 97–99; BMI 30.2; BMI 29.9
[2020-11-25 01:07] LABS: Absolute Lymphocyte Count 3.17 X10^3/uL (0.83-4.51); Absolute Neutrophil Count 7.8 X10^3/uL (2.0-7.7); Basophil# 0.06 X10^3/uL; Basophil% 0.5 % (0-1); Eosinophil# 0.16 X10^3/uL; Eosinophils% 1.4 % (0-5); Hematocrit 41.2 % (37-47); Hemoglobin 13.4 g/dL (12.0-15.0); Lymphocyte # 3.17 X10^3/ul (0.83-4.51); Lymphocyte % 26.8 % (19-41); Mean Corp Hgb Conc 32.5 g/dL (32-36); Mean Corpuscular Hgb 28.5 pg (27.0-32.0); Mean Corpuscular Volume 87.5 fL (81-99); Mean Platelet Vol. 9.3 fl (6.2-12.0); Monocyte# 0.57 X10^3/uL; Monocyte% 4.8 % (0-10); NRBC Flagged by Analyzer 0 % (0-5); Neutrophil # 7.83 X10^3/uL (2.7-7.7); Neutrophil % 66.2 % (47-70); Platelet Count 380 K/mm3 (150-450); RBC Distribution Width CV 13.2 % (11.6-14.6); RBC Distribution Width SD 41.4 fl (35.1-43.9); Red Blood Count 4.71 M/mm3 (4.2-5.4); White Blood Count 11.8 K/mm3 (4.4-11.0)
--- NOTE | 2020-11-25 01:16 | EX.ED.SAOD ---
HPI History of Present Illness Chief Complaint: Substance Abuse Informant: patient Narrative Narrative: Patient uses heroin daily, which likely mixed with fentanyl. She has been doing this daily for the past 2 months, she was last in rehab about 3 months ago. She is here requesting detox so she can get off of using drugs. She last use shortly ago, she has no withdrawal symptoms right now but when she gets them, she has body pains all over, anxiety and tremulousness mostly. She uses IV and nasally, she denies any other substance use. [facility] Medical History Substance abuse Home Medications NK 11/25/20 [History Last Taken Unknown] Allergy/AdvReac Type Severity Reaction Status Date / Time Penicillins [PCN] Allergy Rash Verified 11/25/20 00:36 Social History (Updated 11/25/20 @ 01:41 by Lily Hollis NP-C) Smoking Status: Heavy Smoker (>10/day) alcohol intake: current alcohol intake frequency: holidays/special occasions only substance use type: heroin, opiates and IV drugs ROS ROS ED Constitutional Constitutional ED: Denies chills or fever(s) Eyes Eyes: Denies change in vision or diplopia ENT ENT ED: Denies rhinorrhea or sore throat Cardiovascular Cardiovascular: Denies chest pain or palpitations Respiratory/Chest Respiratory/Chest: Denies cough or dyspnea Gastrointestinal Gastrointestinal: Denies abdominal pain, diarrhea, nausea or vomiting Genitourinary Genitourinary ED: Denies dysuria or hematuria Musculoskeletal Musculoskeletal: Denies back pain or neck pain Integumentary Denies abscess or rash Neurologic Neurologic: Denies headache(s), paresthesias or weakness Psychiatric Psychiatric: Denies anxiety or suicidal thoughts EXAM Physical Exam Const Vital Signs: 11/25/20 00:34 Temperature 97.9 F Temperature Source Temporal Pulse Rate 120 H Respiratory Rate 16 Blood Pressure 136/90 H Blood Pressure Mean 105 Pulse Ox 98 Oxygen Delivery Method Room Air Positive well nourished and well developed General Appearance ED: well developed and NAD HEENT Reports moist mucous membranes normocephalic and atraumatic Eyes PERRL and EOMs intact bilaterally Neck full ROM and supple Resp normal respiratory effort and clear to auscultation bilaterally Cardio regular rate, regular rhythm and no murmurs GI non-tender and non-distended Auscultation: normoactive bowel sounds Palpation: soft Back/Spine no CVA tenderness General Back: other FROM Extremity normal to inspection General Extremety ED: Negative for edema, pulses abnormal or tenderness General Extremity: Negative for edema or pulses abnormal Neuro oriented x3, CN's II-XII intact bilaterally and no sensory deficits noted Sensorium / Orientation: awake and alert Motor Exam: strength 5/5 throughout Skin no rashes or lesions noted MDM MDM MDM Narrative Medical decision making narrative: Discussed with hospitalist service for inpatient detox services. Lab Data Attestation: I reviewed the patient's lab results. Labs: Laboratory Results - last 24 hr 11/25/20 11/25/20 11/25/20 00:42 01:00 01:00 WBC 11.8 H RBC 4.71 Hgb 13.4 Hct 41.2 MCV 87.5 MCH 28.5 MCHC 32.5 RDW Std Deviation 41.4 RDW Coeff of Chase 13.2 Plt Count 380 MPV 9.3 Immature Gran % (Auto) 0.300 Neut % (Auto) 66.2 Lymph % (Auto) 26.8 [place] % (Auto) 4.8 Eos % (Auto) 1.4 Baso % (Auto) 0.5 Absolute Neuts (auto) 7.8 H Absolute Lymphs (auto) 3.17 Nucleated RBC % 0 Sodium 135 L Potassium 3.5 Chloride 105 Carbon Dioxide 25.0 Anion Gap 5 BUN 6 L Creatinine 0.69 Estim Creat Clear Calc 98.27 Est GFR (MDRD) Af Amer 124 Est GFR (MDRD) Non-Af 103 BUN/Creatinine Ratio 8.7 L Glucose 118 H Calcium 8.9 Total Bilirubin 0.30 AST 14 L ALT 21 Alkaline Phosphatase 107 Total Protein 8.0 Albumin 3.2 Globulin 4.8 H Albumin/Globulin Ratio 0.7 L Serum , Qual Urine Opiates Screen POSITIVE H Urine Methadone Screen NEGATIVE Ur Barbiturates Screen NEGATIVE Ur Phencyclidine Scrn NEGATIVE Ur Amphetamines Screen NEGATIVE U Methamphetamin-MDMA POSITIVE H U Benzodiazepines Scrn NEGATIVE Urine Cocaine Screen NEGATIVE U Cannabinoids Screen NEGATIVE Ur Drug Screen Comment Ethyl Alcohol 11/25/20 11/25/20 01:00 01:00 WBC RBC Hgb Hct MCV MCH MCHC RDW Std Deviation RDW Coeff of Chase Plt Count MPV Immature Gran % (Auto) Neut % (Auto) Lymph % (Auto) [place] % (Auto) Eos % (Auto) Baso % (Auto) Absolute Neuts (auto) Absolute Lymphs (auto) Nucleated RBC % Sodium Potassium Chloride Carbon Dioxide Anion Gap BUN Creatinine Estim Creat Clear Calc Est GFR (MDRD) Af Amer Est GFR (MDRD) Non-Af BUN/Creatinine Ratio Glucose Calcium Total Bilirubin AST ALT Alkaline Phosphatase Total Protein Albumin Globulin Albumin/Globulin Ratio Serum , Qual NEGATIVE Urine Opiates Screen Urine Methadone Screen Ur Barbiturates Screen Ur Phencyclidine Scrn Ur Amphetamines Screen U Methamphetamin-MDMA U Benzodiazepines Scrn Urine Cocaine Screen U Cannabinoids Screen Ur Drug Screen Comment Ethyl Alcohol < 3.0 Discharge Plan Dx/Rx/DC Orders Clinical Impression: Opiate dependence Disposition Disposition: Acute Care Hospital [facility] Discharge Date/Time: 11/25/20 01:47
[2020-11-25 01:21] LABS: Internal QC Validated? YES +Cl - CLEAR BKGD; Pregnancy, Serum, hCG Quali. NEGATIVE Negative
[2020-11-25 01:22] LABS: Amphetamine Urine VISTA NEGATIVE (<1000 ng/mL); Barbiturate Urine VISTA NEGATIVE (< 200 ng/mL); Benzodiazepine Urine VISTA NEGATIVE (< 200 ng/mL); Cocaine Urine VISTA NEGATIVE (< 300 ng/mL); Ecstacy Urine VISTA POSITIVE (< 500 ng/mL); Methadone Urine VISTA NEGATIVE (< 300 ng/mL); PCP Urine VISTA NEGATIVE (< 25 ng/mL); THC Urine VISTA NEGATIVE (< 50 ng/mL); Vista UDS pH Range 5
[2020-11-25 01:23] LABS: Alcohol, Blood (Medical)-Serum < 3.0 mg/dL
[2020-11-25 01:28] LABS: ALB/GLOB Ratio 0.7 RATIO (0.9-2.4); AST(SGOT) 14 U/L (15-37); Alanine Aminotransfer ALT/SGPT 21 U/L (13-56); Albumin, Serum 3.2 g/dL (3.2-5.0); Alkaline Phosphatase 107 U/L (45-117); Anion Gap 5 (5-15); BUN 6 mg/dL (7-18); BUN/Creat Ratio 8.7 RATIO (10-20); Calcium,Total 8.9 mg/dL (8.5-10.1); Chloride 105 mmol/L (98-107); Creatinine, Serum 0.69 mg/dL (0.55-1.02); EST Glomerular Filtration Rate 103 mL/min (>60); Est Glom Filt Rate - Afr Amer 124 mL/min (>60); Estimated Creatinine Clearance 98.27 ml/min; Globulin 4.8 g/dL (2.2-4.2); Glucose 118 mg/dL (74-106); Potassium 3.5 mmol/L (3.5-5.1); Sodium Level 135 mmol/L (136-145)
--- NOTE | 2020-11-25 01:36 | PCM.HP.STD ---
Documented by User: YONI Stark 11/25/20 01:48 HPI - General General Date of Admission: 11/25/20 HPI Narrative CHELLY PIMENTEL, is a 35 F who presents for detoxification from opioids. Patient states that she uses 0.5 to 1 g daily. Patient denies use of any other drugs. Patient states last use was at 3 AM on 11/24/2020. Patient states that she is not currently experiencing withdrawal symptoms however she is having a 24-hour david for last use. Patient states she last completed detox 3 months ago and request supportive meds only. Patient states she does not want to use buprenorphine unless needed. [facility] Medical History Substance abuse Home Medications NK 11/25/20 [History Last Taken Unknown] Allergy/AdvReac Type Severity Reaction Status Date / Time Penicillins [PCN] Allergy Rash Verified 11/25/20 00:36 no significant family history no surgical history Social History (Updated 11/25/20 @ 01:41 by YONI Stark) Smoking Status: Heavy Smoker (>10/day) alcohol intake: current alcohol intake frequency: holidays/special occasions only substance use type: heroin, opiates and IV drugs ROS Constitutional Constitutional: Denies anorexia, chills, fatigue, fever(s), malaise or weakness Cardiovascular Cardiovascular: Denies chest pain, edema or palpitations Respiratory/Chest Respiratory/Chest: Denies cough, shortness of breath at rest or shortness of breath with exertion Gastrointestinal Gastrointestinal: Denies abdominal pain, constipation, diarrhea, nausea or vomiting Genitourinary Genitourinary: Denies dysuria Musculoskeletal Musculoskeletal: Denies back pain, extremity pain, joint pain or joint stiffness Integumentary Integumentary: Denies dry skin Neurologic Neurologic: Denies abnormal gait, abnormal speech, confusion, dizziness or focal weakness Psychiatric Psychiatric: Denies anxiety or depression Endocrine Endocrinology: Denies change in body appearance Hematologic/Lymphatic Hematologic/Lymphatic: Denies easy bleeding or easy bruising Vital Signs Vital Signs Vital Signs: 11/25/20 00:34 Temperature 97.9 F Temperature Source Temporal Pulse Rate 120 H Respiratory Rate 16 Blood Pressure 136/90 H Blood Pressure Mean 105 Pulse Ox 98 Oxygen Delivery Method Room Air Weight Weight: 176 lb 5.917 oz Body Mass Index (BMI) 30.2 Physical Exam Const alert and oriented x3 General Appearance: cooperative HEENT normocephalic and head/scalp atraumatic Eyes conjunctivae normal and no scleral icterus Neck supple and no JVD General: trachea midline Resp normal respiratory effort, normal air movement and clear to auscultation bilaterally Cardio regular rate, regular rhythm, S1 normal heart sound and S2 normal heart sound GI normal to inspection, nondistended, normoactive bowel sounds, soft to palpation and non-tender Extremity normal capillary refill and no clubbing, cyanosis or edema General Extremity: no tenderness to palpation of joints or extremities Skin General Skin Exam: no breakdown and turgor normal Lesions: no lesions Rashes: no rashes Wounds: wounds noted other Right breast wound Neuro no focal motor deficits and no sensory deficits noted Speech: speech normal Motor Exam: general weakness Psych thought process normal, cooperative and affect normal Appearance: appropriate Results Lab / Micro Data Result Diagrams: 11/25/20 01:00 11/25/20 01:00 Labs: Laboratory Results - last 24 hr 11/25/20 11/25/20 11/25/20 00:42 01:00 01:00 WBC 11.8 H RBC 4.71 Hgb 13.4 Hct 41.2 MCV 87.5 MCH 28.5 MCHC 32.5 RDW Std Deviation 41.4 RDW Coeff of Chase 13.2 Plt Count 380 MPV 9.3 Immature Gran % (Auto) 0.300 Neut % (Auto) 66.2 Lymph % (Auto) 26.8 [place] % (Auto) 4.8 Eos % (Auto) 1.4 Baso % (Auto) 0.5 Absolute Neuts (auto) 7.8 H Absolute Lymphs (auto) 3.17 Nucleated RBC % 0 Sodium 135 L Potassium 3.5 Chloride 105 Carbon Dioxide 25.0 Anion Gap 5 BUN 6 L Creatinine 0.69 Estim Creat Clear Calc 98.27 Est GFR (MDRD) Af Amer 124 Est GFR (MDRD) Non-Af 103 BUN/Creatinine Ratio 8.7 L Glucose 118 H Calcium 8.9 Total Bilirubin 0.30 AST 14 L ALT 21 Alkaline Phosphatase 107 Total Protein 8.0 Albumin 3.2 Globulin 4.8 H Albumin/Globulin Ratio 0.7 L Serum , Qual Urine Opiates Screen POSITIVE H Urine Methadone Screen NEGATIVE Ur Barbiturates Screen NEGATIVE Ur Phencyclidine Scrn NEGATIVE Ur Amphetamines Screen NEGATIVE U Methamphetamin-MDMA POSITIVE H U Benzodiazepines Scrn NEGATIVE Urine Cocaine Screen NEGATIVE U Cannabinoids Screen NEGATIVE Ur Drug Screen Comment Ethyl Alcohol 11/25/20 11/25/20 01:00 01:00 WBC RBC Hgb Hct MCV MCH MCHC RDW Std Deviation RDW Coeff of [place] Plt Count MPV Immature Gran % (Auto) Neut % (Auto) Lymph % (Auto) [place] % (Auto) Eos % (Auto) Baso % (Auto) Absolute Neuts (auto) Absolute Lymphs (auto) Nucleated RBC % Sodium Potassium Chloride Carbon Dioxide Anion Gap BUN Creatinine Estim Creat Clear Calc Est GFR (MDRD) Af Amer Est GFR (MDRD) Non-Af BUN/Creatinine Ratio Glucose Calcium Total Bilirubin AST ALT Alkaline Phosphatase Total Protein Albumin Globulin Albumin/Globulin Ratio Serum , Qual NEGATIVE Urine Opiates Screen Urine Methadone Screen Ur Barbiturates Screen Ur Phencyclidine Scrn Ur Amphetamines Screen U Methamphetamin-MDMA U Benzodiazepines Scrn Urine Cocaine Screen U Cannabinoids Screen Ur Drug Screen Comment Ethyl Alcohol < 3.0 Assessment & Plan Assessment/Plan (1) Opiate withdrawal: (2) Heroin use: (3) Tobacco use: PLAN: 1. Opiate withdrawal -Admit to MedSurg as part of ramp program -Supportive medications ordered per protocol, per patient's request buprenorphine not started at this time -Consult case management for coordination with 180 for outpatient follow-up -Vital signs per protocol -Oxygen per protocol 2. Tobacco abuse -Nicotine patch ordered -Inpatient smoking cessation ordered 3. Right breast wound -Consult wound nurse for right breast wound -Wet-to-dry dressing ordered DVT prophylaxis-no pharmacological prophylaxis indicated encourage ambulation. This patient was seen by Lily Hollis NP-C under the supervision of Dr. Tenorio. Documented by User: Dr. Jesus Tenorio MD 11/25/20 01:53 HPI - General General Date of Admission: 11/25/20 [facility] Medical History Substance abuse Home Medications NK 11/25/20 [History Last Taken Unknown] Allergy/AdvReac Type Severity Reaction Status Date / Time Penicillins [PCN] Allergy Rash Verified 11/25/20 00:36 Social History (Updated 11/25/20 @ 01:41 by YONI Stark) Smoking Status: Heavy Smoker (>10/day) alcohol intake: current alcohol intake frequency: holidays/special occasions only substance use type: heroin, opiates and IV drugs Results Lab / Micro Data Result Diagrams: 11/25/20 01:00 11/25/20 01:00 Charges/Coding Addendum Addendum: Patient was seen and examined independently. I agree with assessment and plan by YONI Stark In summary patient is a 35-year-old female with a significant history of IV drug use who presents to emergency department with drug withdrawal symptoms and with a desire for detoxification. Patient uses heroin mixed with fentanyl. He shoots and snorted the of fentanyl/heroin. All in all he has been using since 2003. He reports a wound on his right breast that he developed from shooting heroin. Of note patient was at a hospital on 07/16/2020 and discharged on 07/17/2020. Physical exam: General: Well-nourished, well-developed, no acute distress Head: Normocephalic, atraumatic, no tenderness Eyes: PERRLA, EOMI ENT, no trauma, moist mucous membranes, no rhinorrhea Neck: Nontender, full range of motion, no spinal tenderness, deformities, step-off CVS: Regular rate and rhythm Respiratory no acute distress, clear to auscultation bilaterally, chest wall nontender, no wheezing Abdomen: Soft, nontender, nondistended, normal bowel sounds, no masses : Deferred Skin: Right upper breast with ulcer; with purulent drainage and with eschar Neuro: Alert, oriented, cranial nerves II through XII grossly intact. The patient is a 35 year old M/F with a significant history of IV drug use ; and tobacco abuse who presents emergency department with drug withdrawal symptoms and for desire for detoxification . Opioid dependence and withdrawal Emergent department labs reviewed showed mild elevation of white counts of 11.8. test was negative. Patient be started on Subutex and other adjunctive medications: Gabapentin as needed; dicyclomine as needed; Vistaril as needed; methocarbamol as needed; clonidine as needed; Imodium as needed; trazodone as needed and Zofran as needed. Monitor COWS and CINA score Tobacco abuse Counseled Nicotine patch prescribed. Breast wound Wet-to-dry dressing ordered. Wound care consult. DVT prophylaxis Low risk Encourage to ambulate Visit Charges Inpatient E&M: 05658 Init Hosp L2
[2020-11-25] MEDS: Acetaminophen 325 MG Tablet 650 MG PO ×2 (02:28→11:09)
--- NOTE | 2020-11-25 11:44 | PN.HOSP_ITS ---
Subjective Subjective Feels well. Tolerating PO. Objective Data Objective Data Vital Signs: Vital Signs Temp Pulse Resp BP Pulse Ox 36.8 C 72 16 95/70 97 11/25/20 08:44 11/25/20 08:44 11/25/20 08:44 11/25/20 08:44 11/25/20 08:44 Oxygen Delivery Method Room Air Weight: 79.2 kg Body Mass Index (BMI) 29.9 Intake & Output: Intake and Output for Last 24 Hours 11/23/20 11/24/20 11/25/20 23:59 23:59 23:59 Intake Total 400 / 400 Balance 400 / 400 Lab / Micro Data Result Diagrams: 11/25/20 01:00 11/25/20 01:00 Labs: Laboratory Results - last 24 hr 11/25/20 11/25/20 11/25/20 00:42 01:00 01:00 WBC 11.8 H RBC 4.71 Hgb 13.4 Hct 41.2 MCV 87.5 MCH 28.5 MCHC 32.5 RDW Std Deviation 41.4 RDW Coeff of [place] 13.2 Plt Count 380 MPV 9.3 Immature Gran % (Auto) 0.300 Neut % (Auto) 66.2 Lymph % (Auto) 26.8 [place] % (Auto) 4.8 Eos % (Auto) 1.4 Baso % (Auto) 0.5 Absolute Neuts (auto) 7.8 H Absolute Lymphs (auto) 3.17 Nucleated RBC % 0 Sodium 135 L Potassium 3.5 Chloride 105 Carbon Dioxide 25.0 Anion Gap 5 BUN 6 L Creatinine 0.69 Estim Creat Clear Calc 98.27 Est GFR (MDRD) Af Amer 124 Est GFR (MDRD) Non-Af 103 BUN/Creatinine Ratio 8.7 L Glucose 118 H Calcium 8.9 Total Bilirubin 0.30 AST 14 L ALT 21 Alkaline Phosphatase 107 Total Protein 8.0 Albumin 3.2 Globulin 4.8 H Albumin/Globulin Ratio 0.7 L Serum , Qual Urine Opiates Screen POSITIVE H Urine Methadone Screen NEGATIVE Ur Barbiturates Screen NEGATIVE Ur Phencyclidine Scrn NEGATIVE Ur Amphetamines Screen NEGATIVE U Methamphetamin-MDMA POSITIVE H U Benzodiazepines Scrn NEGATIVE Urine Cocaine Screen NEGATIVE U Cannabinoids Screen NEGATIVE Ur Drug Screen Comment Ethyl Alcohol 11/25/20 11/25/20 01:00 01:00 WBC RBC Hgb Hct MCV MCH MCHC RDW Std Deviation RDW Coeff of [place] Plt Count MPV Immature Gran % (Auto) Neut % (Auto) Lymph % (Auto) [place] % (Auto) Eos % (Auto) Baso % (Auto) Absolute Neuts (auto) Absolute Lymphs (auto) Nucleated RBC % Sodium Potassium Chloride Carbon Dioxide Anion Gap BUN Creatinine Estim Creat Clear Calc Est GFR (MDRD) Af Amer Est GFR (MDRD) Non-Af BUN/Creatinine Ratio Glucose Calcium Total Bilirubin AST ALT Alkaline Phosphatase Total Protein Albumin Globulin Albumin/Globulin Ratio Serum , Qual NEGATIVE Urine Opiates Screen Urine Methadone Screen Ur Barbiturates Screen Ur Phencyclidine Scrn Ur Amphetamines Screen U Methamphetamin-MDMA U Benzodiazepines Scrn Urine Cocaine Screen U Cannabinoids Screen Ur Drug Screen Comment Ethyl Alcohol < 3.0 Physical Exam Const alert Exam Limitations: no limitations Resp normal respiratory effort, no use of accessory muscles and clear to auscultation bilaterally Cardio regular rate, regular rhythm, S1 normal heart sound and S2 normal heart sound GI normal to inspection, nondistended, normoactive bowel sounds, soft to palpation, non-tender and non-distended Extremity normal to inspection Skin Skin Narrative: Wound on right breast with healing edge. Packing in there, did not remove. Assessment & Plan Assessment/Plan (1) Opiate withdrawal: (2) Breast lesion: PLAN: 1. Acute opiate withdrawal: Patient has declined buprenorphine. Continue with supportive management. Await for addiction medicine to further assist and provide resources for the patient. 2. Right breast lesion: Patient stated this began after injecting into her breast. Has been present for several weeks and is overall improving. Advised continue with wound care. She did advise patient follow-up with PCP and have routine breast imaging is appropriate for her age as outpatient. Charges/Coding Visit Charges Inpatient E&M: 53428 Subs Hosp L2
[2020-11-25] MEDS: Methocarbamol 750 MG Tablet 1500 MG PO (18:49)
[2020-11-25] MEDS: hydrOXYzine PAM 25 MG Capsule 50 MG PO (18:49)
--- NOTE | 2020-11-25 18:50 | NURSING ---
educated on COW scale, taper and PRN medication. pt stated she does not want taper wants the PRN medications as she needs. Resting in bed call light within reach will continue to monitor.
[2020-11-25] MEDS: traZODone 100 MG Tablet PO (23:32)
--- NOTE | 2020-11-26 03:30 | NURSING ---
resting comfortably with eyes closed.
[2020-11-26 04:42] VITALS: BP 90/44; PULSE 67; RESP 16; TEMP 36.8; O2SAT 99
[2020-11-26 08:16] VITALS: BP 98/60; PULSE 84; RESP 16; TEMP 36.6; O2SAT 98
--- NOTE | 2020-11-26 11:19 | PCM.DC ---
Discharge Instructions Diet Discharge Diet: No restrictions Activity Discharge Activity: Return to Normal Activity Dressing / Incision Call your doctor if your incision/area has: Increased Pain/ Swelling, Increased Redness, Foul Smelling Discharge and Swelling at the incision site Change Dressing in: 1 day Remove Dressing in: 1 day Cleanse incision/area with: Soap & Water and Keep Dressing Clean & Dry Follow Up Care Please Follow Up With: Wound Care When: 1 week Test Results: Test results from this visit will be discussed in further detail at your follow-up appointment, if applicable. Discharge Plan Admission Admit Date/Time: 11/25/20 01:36 Primary Reason for Your Visit: Opiate withdrawal Attending Provider: Denver Galvin Primary Care Provider: Care PhysicianZoila Primary Discharge Orders/Prescriptions Prescriptions: New acetaminophen [Tylenol] 325 mg Tablet 500 mg PO Q4H PRN PRN (Reason: Pain Score 1-10/Temp > 100.7 F) Qty: 0 RF: 0 loperamide 2 mg Capsule 2 mg PO Q4H PRN PRN (Reason: LOOSE STOOLS) Qty: 0 RF: 0 ondansetron HCl 8 mg Tablet 8 mg PO Q8H PRN PRN (Reason: NAUSEA) Qty: 15 RF: 0 methocarbamol 750 mg Tablet 1,500 mg PO Q6H PRN PRN (Reason: Muscle Spasm) Qty: 20 RF: 0 trazodone 100 mg Tablet 100 mg PO QHS PRN PRN (Reason: Insomnia) Qty: 5 RF: 0 dicyclomine 10 mg Capsule 20 mg PO Q6H PRN PRN (Reason: Abdominal Discomfort) Qty: 20 RF: 0 hydroxyzine pamoate 25 mg Capsule 50 mg PO Q6H PRN PRN (Reason: mild anxiety) Qty: 20 RF: 0 Referrals / Follow Up: Care Physician,No Primary [Primary Care Provider] - [facility] [STAFF PHYSICIAN] - 11/28/20 9:00 am (Please arrive at 180 on SaturdayNovember 28 between [phone] for assessment and to set a plan. ) Disposition Disposition (needs filled in before D/C Order can be placed): Home, Self Care
--- NOTE | 2020-11-26 11:24 | DS.PCM_ITS ---
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 Routine Comment: Reason for Consult:: R breast wound Reason For Visit: OPIOID DETOX Diagnosis Discharge Diagnosis (1) Opiate withdrawal: Status: Acute Code(s): F11.23 - Opioid dependence with withdrawal (2) Breast lesion: Status: Acute Code(s): N64.9 - Disorder of breast, unspecified Medications at Discharge Home Medications acetaminophen [Tylenol] 500 mg PO Q4H PRN PRN #0 tab 11/26/20 dicyclomine 20 mg PO Q6H PRN PRN #20 cap 11/26/20 hydroxyzine pamoate 50 mg PO Q6H PRN PRN #20 cap 11/26/20 loperamide 2 mg PO Q4H PRN PRN #0 cap 11/26/20 methocarbamol 1,500 mg PO Q6H PRN PRN #20 tab 11/26/20 ondansetron HCl 8 mg PO Q8H PRN PRN #15 tab 11/26/20 trazodone 100 mg PO QHS PRN PRN #5 tab 11/26/20 Hospital Course Operations None Procedures None Summary of Care Provided Minutes Spent on Discharge: 32 Hospital Course: 35-year-old female presents for treatment for opiate withdrawal. Patient states her last use at 3 AM on November 24. Patient declined buprenorphine. Patient's was otherwise feeling well. Spoke with the patient today about keeping her here in the hospital when she is not actively taking any of the recommended medication with the buprenorphine other than just the as needed. Said that she would not build to do it at home. Nursing reached out to the 180 individual who said that there is a conflict that that individual as well as the patient had would not be able to see the patient but recommended discharge with outpatient follow-up with 180. Information will be provided to the patient for follow-up with the [facility]s that she go through program. Patient will receive a short course of medications to help with opiate withdrawal but will not be receiving a prescription for buprenorphine as she is already declined on inpatient side. Physical Exam Const alert HEENT normocephalic Weight / BMI Weight Weight: 79.2 kg Body Mass Index (BMI) 29.9 ABG / Lab / Microbiology Data Result Diagrams: 11/25/20 01:00 11/25/20 01:00 D/C Instructions Discharge Diet: No restrictions Call your doctor if your incision/area has: Increased Pain/ Swelling, Increased Redness, Foul Smelling Discharge and Swelling at the incision site Cleanse incision/area with: Soap & Water and Keep Dressing Clean & Dry Please Follow Up With: Wound Care When: 1 week Meaningful Use Info Meaningful Use Diagnoses (Choose all that apply): None applicable Discharge Plan Admission Admit Date/Time: 11/25/20 01:36 Primary Reason for Your Visit: Opiate withdrawal Attending Provider: Denver Galvin Primary Care Provider: Care Physician,Zoila Primary Discharge Orders/Prescriptions Prescriptions: New acetaminophen [Tylenol] 325 mg Tablet 500 mg PO Q4H PRN PRN (Reason: Pain Score 1-10/Temp > 100.7 F) Qty: 0 RF: 0 loperamide 2 mg Capsule 2 mg PO Q4H PRN PRN (Reason: LOOSE STOOLS) Qty: 0 RF: 0 ondansetron HCl 8 mg Tablet 8 mg PO Q8H PRN PRN (Reason: NAUSEA) Qty: 15 RF: 0 methocarbamol 750 mg Tablet 1,500 mg PO Q6H PRN PRN (Reason: Muscle Spasm) Qty: 20 RF: 0 trazodone 100 mg Tablet 100 mg PO QHS PRN PRN (Reason: Insomnia) Qty: 5 RF: 0 dicyclomine 10 mg Capsule 20 mg PO Q6H PRN PRN (Reason: Abdominal Discomfort) Qty: 20 RF: 0 hydroxyzine pamoate 25 mg Capsule 50 mg PO Q6H PRN PRN (Reason: mild anxiety) Qty: 20 RF: 0 Referrals / Follow Up: Care Physician,No Primary [Primary Care Provider] - [facility] [STAFF PHYSICIAN] - 11/28/20 9:00 am (Please arrive at 180 on SaturdayNovember 28 between [phone] for assessment and to set a plan. ) Disposition Disposition (needs filled in before D/C Order can be placed): Home, Self Care Charges/Coding Visit Charges Inpatient E&M: 40072 Disch Hosp
== END 2020-11-26 12:39 | disposition home or self-care (01) ==
LOC: ED 01:19 → PCU 01:41
PROVIDERS: Admitting Provider Hospitalist; Emergency Provider Emergency Medicine
DX: F11.23 Opioid dependence with withdrawal (principal); F17.200 Nicotine dependence, unspecified, uncomplicated; S21.031A Puncture wound without foreign body of right breast, initial encounter; X78.8XXA Intentional self-harm by other sharp object, initial encounter; Y93.9 Activity, unspecified; Y92.9 Unspecified place or not applicable
CPT/HCPCS: 36415; 80053; 80307; 82077; 84703; 85025; 97802; 99218; 99283; 99406; G0378

== ENCOUNTER 2021-02-19 11:48 | Inpatient (IN) | payer MEDICAID, SELFPAY ==
[2021-02-19] VITALS (7 sets, daily range): BP systolic 107–142; BP diastolic 71–79; PULSE 67–98; RESP 15–18; TEMP 36.1–37.2; O2SAT 97–99; BMI 30.6
--- NOTE | 2021-02-19 12:57 | EDS_ITS ---
HPI History of Present Illness Chief Complaint: Substance Abuse Informant: patient Onset/Context/Timing Current Severity: Mild Maximum Severity: Mild Narrative Narrative: Patient presents requesting detox from heroin. Patient states she has been injecting heroin for the last 8 months. She was last admitted in November for detox. Patient states she was discharged after just 1 day in the hospital did not feel she was ready to go home. When she got home the temptation was too great and she started using again. She denies any alcohol use. Last use was 12 hours ago. Patient states she started to feel little bit shaky but wanted to come in before her symptoms got too bad. [facility] Medical History (Updated 02/19/21 @ 16:17 by Alessandra Reinoso) Migraines Smoker Substance abuse Home Medications NK 02/19/21 [History Last Taken Unknown] Allergy/AdvReac Type Severity Reaction Status Date / Time Penicillins [PCN] Allergy Rash Verified 02/19/21 11:49 Family History (Updated 02/19/21 @ 15:[address] Aaliyah Payne MD) Mother Hypertension Social History (Updated 02/19/21 @ 15:[address] Aaliyah Payne MD) household members: spouse and children Smoking Status: Heavy Smoker (>10/day) alcohol intake: current alcohol intake frequency: holidays/special occasions only substance use type: heroin, opiates and IV drugs ROS ROS ED Constitutional Constitutional ED: Denies chills or fever(s) Eyes Eyes: Denies change in vision ENT ENT ED: Denies sore throat Cardiovascular Cardiovascular: Denies chest pain Respiratory/Chest Respiratory/Chest: Denies cough or dyspnea Gastrointestinal Gastrointestinal: Denies abdominal pain, diarrhea, nausea or vomiting Genitourinary Genitourinary ED: Denies dysuria Musculoskeletal Musculoskeletal: Denies back pain Neurologic Neurologic: Denies headache(s) or weakness Psychiatric Psychiatric: Reports anxiety; Denies depression Allergic/Immunologic Allergic/Immunologic ED: Denies urticaria EXAM Physical Exam Const Vital Signs: 02/19/21 11:50 Temperature 96.9 F L Temperature Source Temporal Pulse Rate 97 Respiratory Rate 17 Blood Pressure 125/79 H Blood Pressure Mean 94 Pulse Ox 98 Oxygen Delivery Method Room Air Positive well nourished and well developed General Appearance ED: well developed Neck supple Lymph Lymphatic: no lymphadenopathy noted Chest Wall inspection of chest normal and palpation of chest normal Resp normal respiratory effort and clear to auscultation bilaterally Cardio regular rate and regular rhythm GI soft to palpation and non-tender Back/Spine no CVA tenderness Extremity Extremity Narrative: Track braga noted on the bilateral arms. No sign of secondary infection at this time. Neuro oriented x3 Sensorium / Orientation: alert Psych Mood & Affect: tearful MDM MDM MDM Narrative Medical decision making narrative: Lab work for addiction medicine is ordered. Lab Data Attestation: I reviewed the patient's lab results. Labs: Laboratory Results - last 24 hr 02/19/21 02/19/21 02/19/21 12:37 13:26 13:26 WBC 9.1 RBC 4.27 Hgb 12.1 Hct 38.1 MCV 89.2 MCH 28.3 MCHC 31.8 L RDW Std Deviation 45.2 H RDW Coeff of [place] 13.8 Plt Count 302 MPV 9.0 Immature Gran % (Auto) 0.400 Neut % (Auto) 77.4 H Lymph % (Auto) 15.0 L [place] % (Auto) 6.2 Eos % (Auto) 0.7 Baso % (Auto) 0.3 Absolute Neuts (auto) 7.0 Absolute Lymphs (auto) 1.36 Nucleated RBC % 0 Sodium 138 Potassium 4.1 Chloride 105 Carbon Dioxide 26.0 Anion Gap 7 BUN 8 Creatinine 0.67 Estim Creat Clear Calc 101.20 Est GFR (MDRD) Af Amer 128 Est GFR (MDRD) Non-Af 105 BUN/Creatinine Ratio 11.9 Glucose 120 H Calcium 9.2 Total Bilirubin 0.30 AST 22 ALT 31 Alkaline Phosphatase 87 Total Protein 7.8 Albumin 3.1 L Globulin 4.7 H Albumin/Globulin Ratio 0.7 L Serum , Qual Urine Opiates Screen POSITIVE H Urine Methadone Screen NEGATIVE Ur Barbiturates Screen NEGATIVE Ur Phencyclidine Scrn NEGATIVE Ur Amphetamines Screen NEGATIVE U Methamphetamin-MDMA NEGATIVE U Benzodiazepines Scrn NEGATIVE Urine Cocaine Screen NEGATIVE U Cannabinoids Screen NEGATIVE Ur Drug Screen Comment Ethyl Alcohol 02/19/21 02/19/21 13:26 13:26 WBC RBC Hgb Hct MCV MCH MCHC RDW Std Deviation RDW Coeff of [place] Plt Count MPV Immature Gran % (Auto) Neut % (Auto) Lymph % (Auto) [place] % (Auto) Eos % (Auto) Baso % (Auto) Absolute Neuts (auto) Absolute Lymphs (auto) Nucleated RBC % Sodium Potassium Chloride Carbon Dioxide Anion Gap BUN Creatinine Estim Creat Clear Calc Est GFR (MDRD) Af Amer Est GFR (MDRD) Non-Af BUN/Creatinine Ratio Glucose Calcium Total Bilirubin AST ALT Alkaline Phosphatase Total Protein Albumin Globulin Albumin/Globulin Ratio Serum , Qual NEGATIVE Urine Opiates Screen Urine Methadone Screen Ur Barbiturates Screen Ur Phencyclidine Scrn Ur Amphetamines Screen U Methamphetamin-MDMA U Benzodiazepines Scrn Urine Cocaine Screen U Cannabinoids Screen Ur Drug Screen Comment Ethyl Alcohol < 3.0 Treatment and Re-Evaluation Comments:: Lab work reviewed and largely unremarkable. Tox screen is positive only for opiates. Patient will be discussed with hospitalist for admission to detox. Discharge Plan Dx/Rx/DC Orders Clinical Impression: Desire for detoxification, Heroin abuse Disposition Disposition: Acute Care Hospital [facility] Discharge Date/Time: 02/19/21 15:50
[2021-02-19 13:35] LABS: Absolute Lymphocyte Count 1.36 X10^3/uL (0.83-4.51); Basophil# 0.03 X10^3/uL; Basophil% 0.3 % (0-1); Eosinophil# 0.06 X10^3/uL; Eosinophils% 0.7 % (0-5); Hematocrit 38.1 % (37-47); Hemoglobin 12.1 g/dL (12.0-15.0); Lymphocyte # 1.36 X10^3/ul (0.83-4.51); Mean Corp Hgb Conc 31.8 g/dL (32-36); Mean Corpuscular Hgb 28.3 pg (27.0-32.0); Mean Corpuscular Volume 89.2 fL (81-99); Monocyte# 0.56 X10^3/uL; Monocyte% 6.2 % (0-10); NRBC Flagged by Analyzer 0 % (0-5); Neutrophil # 7.01 X10^3/uL (2.7-7.7); Neutrophil % 77.4 % (47-70); Platelet Count 302 K/mm3 (150-450); RBC Distribution Width CV 13.8 % (11.6-14.6); RBC Distribution Width SD 45.2 fl (35.1-43.9); Red Blood Count 4.27 M/mm3 (4.2-5.4); White Blood Count 9.1 K/mm3 (4.4-11.0)
[2021-02-19 13:36] LABS: Amphetamine Urine VISTA NEGATIVE (<1000 ng/mL); Barbiturate Urine VISTA NEGATIVE (< 200 ng/mL); Benzodiazepine Urine VISTA NEGATIVE (< 200 ng/mL); Cocaine Urine VISTA NEGATIVE (< 300 ng/mL); Ecstacy Urine VISTA NEGATIVE (< 500 ng/mL); Methadone Urine VISTA NEGATIVE (< 300 ng/mL); PCP Urine VISTA NEGATIVE (< 25 ng/mL); THC Urine VISTA NEGATIVE (< 50 ng/mL); Vista UDS pH Range 7
[2021-02-19 13:51] LABS: ALB/GLOB Ratio 0.7 RATIO (0.9-2.4); AST(SGOT) 22 U/L (15-37); Alanine Aminotransfer ALT/SGPT 31 U/L (13-56); Albumin, Serum 3.1 g/dL (3.2-5.0); Alkaline Phosphatase 87 U/L (45-117); Anion Gap 7 (5-15); BUN 8 mg/dL (7-18); BUN/Creat Ratio 11.9 RATIO (10-20); Calcium,Total 9.2 mg/dL (8.5-10.1); Chloride 105 mmol/L (98-107); Creatinine, Serum 0.67 mg/dL (0.55-1.02); EST Glomerular Filtration Rate 105 mL/min (>60); Est Glom Filt Rate - Afr Amer 128 mL/min (>60); Globulin 4.7 g/dL (2.2-4.2); Glucose 120 mg/dL (74-106); Potassium 4.1 mmol/L (3.5-5.1); Protein, Total 7.8 g/dL (6.4-8.2); Sodium Level 138 mmol/L (136-145)
[2021-02-19 13:52] LABS: Internal QC Validated? YES +Cl - CLEAR BKGD; Pregnancy, Serum, hCG Quali. NEGATIVE Negative
[2021-02-19 13:54] LABS: Alcohol, Blood (Medical)-Serum < 3.0 mg/dL
--- NOTE | 2021-02-19 14:08 | ED.RN ---
pt is a difficult blood draw. dr consulted about an IV due to requirement for use of ultrasound. dr rodgers agreed. verbal order placed. anthony alvarenga rn [id number]
--- NOTE | 2021-02-19 15:12 | HP.PCM.HOS_ITS ---
[facility] - General General Date of Service: 02/19/21 Chief Complaint: Request for medical stabilization for acute opioid withdrawal HPI Narrative CHELLY PIMENTEL, is a 35 F who presents for medical stabilization. Patient uses IV heroin, but 1 g daily. Her last use was 1 AM on the day of admission. She complains of feeling restless, hot and cold, abdominal discomfort, feeling very anxious. She denied any nausea or vomiting. She feels restless. She was admitted here in November but relapsed soon afterwards. Urine tox is positive for opiates. Alcohol level is less than 3 PFSH Medical History Smoker Substance abuse no medical history Home Medications NK 02/19/21 [History Last Taken Unknown] Allergy/AdvReac Type Severity Reaction Status Date / Time Penicillins [PCN] Allergy Rash Verified 02/19/21 11:49 Family History (Updated 02/19/21 @ 15:[address] Aaliyah Payne MD) Mother Hypertension no surgical history Social History (Updated 02/19/21 @ 15:[address] Aaliyah Payne MD) household members: spouse and children Smoking Status: Heavy Smoker (>10/day) alcohol intake: current alcohol intake frequency: holidays/special occasions only substance use type: heroin, opiates and IV drugs ROS ROS Narrative Constitutional: Reports: Malaise, Weakness, Fatigue. Denies: Anorexia, Chills, Fever, Night Sweats, Weight Change Eyes: Denies: Blurred vision, Cataracts, Conjunctivae Inflammation, Pain, Redness, Vision Change HEENT: Denies: Difficulty Hearing, Difficulty Swallowing, Head Aches, Hearing Changes, Sinus Congestion, Sinus Drainage Cardiovascular: Denies: Chest Pain, Orthopnea, Palpitations Respiratory: Denies: Cough, Shortness of breath at rest, Sputum production Gastrointestinal: Denies: Abdominal Pain, Nausea, Vomiting Genitourinary: Denies: Dysuria Musculoskeletal: Denies: Joint Pain, Joint stiffness, Joint swelling, Joint Tenderness Skin: Denies: Rash, Wounds Neurological: Admits to feeling restless denies: Numbness, Tingling, Focal weakness Vital Signs Vital Signs Vital Signs: 02/19/21 11:50 02/19/21 15:08 Temperature 96.9 F L Temperature Source Temporal Pulse Rate 97 98 Respiratory Rate 17 16 Blood Pressure 125/79 H Blood Pressure Mean 94 Pulse Ox 98 97 Oxygen Delivery Method Room Air Room Air Weight Weight: 80.9 kg Body Mass Index (BMI) 30.6 Physical Exam Narrative Physical exam: General: Alert, Oriented x3, Cooperative, No apparent distress, Well developed HEENT: Atraumatic Oral: Moist Mucosa Neck: Supple Lungs: Diminished to auscultation Cardiovascular: HS I+II, regular, no murmurs Abdomen: Bowel Sounds Present, Soft, Non Tender Extremities: No edema Results Lab / Micro Data Result Diagrams: 02/19/21 13:26 02/19/21 13:26 Labs: Laboratory Results - last 24 hr 02/19/21 12:37: Urine Opiates Screen POSITIVE H, Urine Methadone Screen NEGATIVE, Ur Barbiturates Screen NEGATIVE, Ur Phencyclidine Scrn NEGATIVE, Ur Amphetamines Screen NEGATIVE, U Methamphetamin-MDMA NEGATIVE, U Benzodiazepines Scrn NEGATIVE, Urine Cocaine Screen NEGATIVE, U Cannabinoids Screen NEGATIVE, Ur Drug Screen Comment 02/19/21 13:26: WBC 9.1, RBC 4.27, Hgb 12.1, Hct 38.1, MCV 89.2, MCH 28.3, MCHC 31.8 L, RDW Std Deviation 45.2 H, RDW Coeff of [place] 13.8, Plt Count 302, MPV 9.0, Immature Gran % (Auto) 0.400, Neut % (Auto) 77.4 H, Lymph % (Auto) 15.0 L, [place] % (Auto) 6.2, Eos % (Auto) 0.7, Baso % (Auto) 0.3, Absolute Neuts (auto) 7.0, Absolute Lymphs (auto) 1.36, Nucleated RBC % 0 02/19/21 13:26: Sodium 138, Potassium 4.1, Chloride 105, Carbon Dioxide 26.0, Anion Gap 7, BUN 8, Creatinine 0.67, Estim Creat Clear Calc 101.20, Est GFR (MDRD) Af Amer 128, Est GFR (MDRD) Non-Af 105, BUN/Creatinine Ratio 11.9, Glucose 120 H, Calcium 9.2, Total Bilirubin 0.30, AST 22, ALT 31, Alkaline Phosphatase 87, Total Protein 7.8, Albumin 3.1 L, Globulin 4.7 H, Albumin/Globulin Ratio 0.7 L 02/19/21 13:26: Ethyl Alcohol < 3.0 02/19/21 13:26: Serum , Qual NEGATIVE Assessment & Plan Assessment/Plan (1) Opiate withdrawal: (2) Heroin use: (3) IV drug abuse: (4) Tobacco use: PLAN: 1. Acute opioid withdrawal, in a known heroin user Patient was recently here in November 2020 Admit to [facility], start on Subutex withdrawal protocol 2. Nicotine dependence, continue on replacement 3. DVT prophylaxis; low risk?early ambulation recommended Charges/Coding Visit Charges Inpatient E&M: 60307 Init Hosp L2
--- NOTE | 2021-02-19 16:25 | PCS.PANDOC ---
PANDEMIC DOCUMENTATION INITIATED: Date: 01/02/2021 Time: 190
[2021-02-19] MEDS: cloNIDine HCl 0.1 MG Tablet PO (16:30)
[2021-02-19] MEDS: Acetaminophen 500 MG Tablet PO ×2 (16:30→22:30)
[2021-02-19] MEDS: hydrOXYzine PAM 25 MG Capsule 50 MG PO ×2 (16:30→22:30)
[2021-02-19] MEDS: Methocarbamol 750 MG Tablet 1500 MG PO ×2 (16:30→22:30)
[2021-02-19] MEDS: Buprenorphine HCl 2 MG TAB.SUBL SL (18:45)
[2021-02-19] MEDS: Ibuprofen 600 MG Tablet PO (20:03)
[2021-02-19] MEDS: Gabapentin 300 MG Capsule PO (20:03)
[2021-02-19] MEDS: traZODone 100 MG Tablet PO (22:29)
[2021-02-20 02:35] VITALS: BP 117/82; PULSE 62; RESP 18; TEMP 36.6; O2SAT 99
[2021-02-20] MEDS: Buprenorphine HCl 2 MG TAB.SUBL SL ×2 (02:37→11:24)
[2021-02-20] MEDS: cloNIDine HCl 0.1 MG Tablet PO ×2 (02:37→11:24)
[2021-02-20] MEDS: Methocarbamol 750 MG Tablet 1500 MG PO ×2 (06:34→16:06)
[2021-02-20] MEDS: Ibuprofen 600 MG Tablet PO (06:34)
[2021-02-20] MEDS: Gabapentin 300 MG Capsule PO ×2 (06:34→16:06)
[2021-02-20 06:35] VITALS: BP 105/72; PULSE 69; RESP 18; TEMP 36.7; O2SAT 95
--- NOTE | 2021-02-20 06:57 | PCM.DC.SUM ---
Providers Date of Admission: 02/19/21 Primary Care Physician: No Primary Care Phys Reason For Visit: ACUTE OPIATE WITHDRAWAL Diagnosis Discharge Diagnosis (1) Opiate withdrawal: Status: Acute Code(s): F11.23 - Opioid dependence with withdrawal Medications at Discharge Home Medications NK 02/19/21 Hospital Course Summary of Care Provided Hospital Course: Patient presented for acute opiate withdrawal and was started on buprenorphine and she was taking that. Patient left AGAINST MEDICAL ADVICE on February 20. Weight / BMI Weight Weight: 79.379 kg Body Mass Index (BMI) 30.0 ABG / Lab / Microbiology Data Result Diagrams: 02/19/21 13:26 02/19/21 13:26 Meaningful Use Info Meaningful Use Diagnoses (Choose all that apply): None applicable Discharge Plan Admission Admit Date/Time: 02/19/21 15:08 Attending Provider: Denver Galvin Primary Care Provider: Care Physician,No Primary Discharge Orders/Prescriptions Prescriptions: No Action NK RF: 0 Referrals / Follow Up: Care Physician,No Primary [Primary Care Provider] - Disposition Disposition (needs filled in before D/C Order can be placed): Against Medical Advice Charges/Coding Visit Charges Inpatient E&M: 59000 Disch Hosp
[2021-02-20 11:19] VITALS: BP 104/68; PULSE 77; RESP 18; TEMP 36.8; O2SAT 98
[2021-02-20] MEDS: hydrOXYzine PAM 25 MG Capsule 50 MG PO (11:24)
--- NOTE | 2021-02-20 12:52 | PCM.PN.HOSP ---
Subjective Subjective Feels ok at present. Objective Data Objective Data Vital Signs: Vital Signs Temp Pulse Resp BP Pulse Ox 36.8 C 77 18 104/68 98 02/20/21 11:19 02/20/21 11:19 02/20/21 11:19 02/20/21 11:19 02/20/21 11:19 Oxygen Delivery Method Room Air Weight: 79.379 kg Body Mass Index (BMI) 30.0 Lab / Micro Data Result Diagrams: 02/19/21 13:26 02/19/21 13:26 Labs: Laboratory Results - last 24 hr 02/19/21 12:37: Urine Opiates Screen POSITIVE H, Urine Methadone Screen NEGATIVE, Ur Barbiturates Screen NEGATIVE, Ur Phencyclidine Scrn NEGATIVE, Ur Amphetamines Screen NEGATIVE, U Methamphetamin-MDMA NEGATIVE, U Benzodiazepines Scrn NEGATIVE, Urine Cocaine Screen NEGATIVE, U Cannabinoids Screen NEGATIVE, Ur Drug Screen Comment 02/19/21 13:26: WBC 9.1, RBC 4.27, Hgb 12.1, Hct 38.1, MCV 89.2, MCH 28.3, MCHC 31.8 L, RDW Std Deviation 45.2 H, RDW Coeff of [place] 13.8, Plt Count 302, MPV 9.0, Immature Gran % (Auto) 0.400, Neut % (Auto) 77.4 H, Lymph % (Auto) 15.0 L, [place] % (Auto) 6.2, Eos % (Auto) 0.7, Baso % (Auto) 0.3, Absolute Neuts (auto) 7.0, Absolute Lymphs (auto) 1.36, Nucleated RBC % 0 02/19/21 13:26: Sodium 138, Potassium 4.1, Chloride 105, Carbon Dioxide 26.0, Anion Gap 7, BUN 8, Creatinine 0.67, Estim Creat Clear Calc 101.20, Est GFR (MDRD) Af Amer 128, Est GFR (MDRD) Non-Af 105, BUN/Creatinine Ratio 11.9, Glucose 120 H, Calcium 9.2, Total Bilirubin 0.30, AST 22, ALT 31, Alkaline Phosphatase 87, Total Protein 7.8, Albumin 3.1 L, Globulin 4.7 H, Albumin/Globulin Ratio 0.7 L 02/19/21 13:26: Ethyl Alcohol < 3.0 02/19/21 13:26: Serum , Qual NEGATIVE Physical Exam Const alert Exam Limitations: no limitations Psych affect normal Assessment & Plan Assessment/Plan (1) Opiate withdrawal: PLAN: 1. Acute opiate withdrawal Continue buprenorphine taper Continue with. Medications to help with other somatic complaints with the acute opiate withdrawal Addiction medicine to see Charges/Coding Visit Charges Inpatient E&M: 61322 Subs Hosp L1
[2021-02-20 15:53] VITALS: BP 112/68; PULSE 65; RESP 16; TEMP 36.8; O2SAT 98
== END 2021-02-20 19:30 | disposition left against medical advice (07) | DRG 770 ==
LOC: ED 14:24 → MS3 15:23
PROVIDERS: Admitting Provider Internal Medicine; Emergency Provider Emergency Medicine
DX: F11.23 Opioid dependence with withdrawal (principal); F17.200 Nicotine dependence, unspecified, uncomplicated
CPT/HCPCS: 80053; 80307; 82077; 84703; 85025; 99284; 99406

== ENCOUNTER 2023-11-22 17:22 | Emergency (ER) | payer MEDICAID, SELFPAY ==
[2023-11-22 17:22] VITALS: BP 134/90; PULSE 96; RESP 16; TEMP 36.4; O2SAT 99; BMI 27.9
--- NOTE | 2023-11-22 17:45 | EDS_ITS ---
HPI <CARLIE Fox - Last Filed: 11/22/23 18:24> History of Present Illness Chief Complaint: Substance Abuse Narrative Narrative: 38-year-old female states [facility] services mandated her to do intensive outpatient therapy at [facility] in [place]. She states 3 weeks ago at children services she took a pill and had a drug screen that was positive for xylazine but she has not used illicit drugs since then. She was on methadone but stopped about 2 and half weeks ago. She states [facility] will not schedule her an appointment until she goes to acute detox or has documentation she does not need it. She is asymptomatic. Denies chest pain, shortness of breath, palpitations, nausea vomiting abdominal pain or diarrhea, sweating or seizures. PFSH <CARLIE Fox - Last Filed: 11/22/23 18:24> [facility], [facility] Medical History (Updated 11/22/23 @ 20:[address] Sreedhar Corrales MD) Migraines Heroin abuse Smoker Substance abuse Tobacco use IV drug abuse Heroin use Home Medications ?Medication ?Instructions ?Recorded ?Last Taken ?Type NK 02/19/21 Unknown History Allergy/AdvReac Type Severity Reaction Status Date / Time Penicillins (PCN) Allergy Rash Verified 11/22/23 17:22 Family History (Updated 02/19/21 @ 15:[address] Aaliyah Payne MD) Mother Hypertension Social History (Updated 02/19/21 @ 15:[address] Aaliyah Payne MD) household members: spouse and children Smoking Status: Heavy Smoker (>10/day) alcohol intake: current alcohol intake frequency: holidays/special occasions only substance use type: heroin, opiates and IV drugs ROS <CARLIE Fox - Last Filed: 11/22/23 18:24> ROS ED ROS Narrative Constitutional: Negative for fever, chills, malaise. CVS: Negative for palpitations, chest pain. Respiratory: Negative for shortness of breath. GI: Negative for abdominal pain, nausea, vomiting, diarrhea. EXAM <CARLIE Fox - Last Filed: 11/22/23 18:24> Physical Exam Narrative Exam Narrative: CONST: Patient sitting in no acute distress. EYES: Normal inspection. NECK: Normal inspection. RESP: No respiratory distress, CTAB. CVS: Regular rate and rhythm, no murmur, no gallop. SKIN: Color normal, no rash, warm, dry, intact. EXTREMITIES: Normal appearance, no pedal edema. NEURO: Alert and answering questions appropriately. PSYCH: Normal affect. Const Vital Signs: 11/22/23 17:22 11/22/23 18:41 Temperature 97.5 F L 97.5 F L Temperature Source Temporal Pulse Rate 96 90 Respiratory Rate 16 18 Blood Pressure 134/90 H 135/75 H Blood Pressure Mean 104 95 Pulse Ox 99 99 Oxygen Delivery Method Room Air <Dr. Sreedhar Corrales MD - Last Filed: 11/22/23 20:16> Physical Exam Const Vital Signs: 11/22/23 17:22 11/22/23 18:41 Temperature 97.5 F L 97.5 F L Temperature Source Temporal Pulse Rate 96 90 Respiratory Rate 16 18 Blood Pressure 134/90 H 135/75 H Blood Pressure Mean 104 95 Pulse Ox 99 99 Oxygen Delivery Method Room Air MDM <CARLIE Fox - Last Filed: 11/22/23 18:24> [facility] Narrative Medical decision making narrative: Patient states she has not used illicit drugs in 3 weeks. She appears well and nontoxic, is hemodynamically stable, and has a benign exam. She does not require detox services at this time. She is cleared to follow-up with her outpatient counseling program. <Dr. Sreedhar Corrales MD - Last Filed: 11/22/23 20:16> [facility] Narrative Medical decision making narrative: Patient states she has not used illicit drugs in 3 weeks. She appears well and nontoxic, is hemodynamically stable, and has a benign exam. She does not require detox services at this time. She is cleared to follow-up with her outpatient counseling program. I have personally performed a face to face assessment of the patient and have reviewed the BIANCA Note. I performed a substantive portion of the visit including all aspects of the following. My stack findings include: History is remarkable for patient requiring inpatient therapy observation for medication she took 3 weeks ago. She has had several negative tox since. In my opinion patient does not need any type of treatment. She is asymptomatic. Exam is remarkable for slightly elevated blood pressure. She has no history of hypertension. HEENT, neck, chest abdomen are all unremarkable. Medical Decision Making medical screening exam not requiring any diagnostic workup Other additions or changes: [None] Discharge Plan Triage Chief Complaint: Substance Abuse ED Midlevel Provider: Valeri Zhao ED Provider: Sreedhar Corrales Dx/Rx/DC Orders Clinical Impression: History of drug use, Encounter for medical screening examination, Elevated blood-pressure reading, without diagnosis of hypertension Prescriptions: No Action NK Primary Care Provider: Care Physician,No Primary Referrals: Care Physician,No Primary [Primary Care Provider] - Activity Restrictions/Additional Instructions: Patient has no signs or symptoms of drug withdrawal and does not require detox services. Please follow-up with [facility]. Print Language: Barbadian Disposition Disposition: Home, Self Care Discharge Date/Time: 11/22/23 18:42
[2023-11-22 18:41] VITALS: BP 135/75; PULSE 90; RESP 18; TEMP 36.4; O2SAT 99
== END 2023-11-22 18:42 | disposition home or self-care (01) ==
LOC: ED 18:04
PROVIDERS: Emergency Provider Emergency Medicine; Visit Provider Emergency Medicine
DX: R03.0 Elevated blood-pressure reading, without diagnosis of hypertension (principal); F17.200 Nicotine dependence, unspecified, uncomplicated
CPT/HCPCS: 99282

== ENCOUNTER 2023-11-26 13:06 | Emergency (ER) | payer MEDICAID, SELFPAY ==
[2023-11-26 13:08] VITALS: BP 133/78; PULSE 74; RESP 14; TEMP 36.6; O2SAT 98; BMI 28.3
== END 2023-11-26 16:05 | disposition left against medical advice (07) ==
LOC: ED 16:09
DX: Z53.21 Procedure and treatment not carried out due to patient leaving prior to being seen by health care provider (principal)

== ENCOUNTER 2023-11-26 16:35 | Emergency (ER) | payer MEDICAID, SELFPAY ==
[2023-11-26 16:36] VITALS: BP 127/76; PULSE 85; RESP 16; TEMP 36.6; O2SAT 99; BMI 29.5
[2023-11-26 18:00] VITALS: BP 126/78; PULSE 74; RESP 16; TEMP 36.6; O2SAT 99
--- NOTE | 2023-11-26 18:09 | EX.ED.DYSGE1 ---
HPI History of Present Illness Chief Complaint: Other, Pain/Inj Detail of Chief Complaint: Left breast lump 3 days ago. Informant: patient Onset/Context/Timing Onset: Days Context: Gradual Onset Timing: Continuous Narrative Narrative: 38-year-old female she is noted she had a left breast lump on self-examination on Saturday. Denies any pain. No discharge. No fever. No prior history of breast cancer. No weight loss. Prior similar symptoms: No Recent Illness/Hospitalization: No PFSH PFSH Medical History Migraines Heroin abuse Smoker Substance abuse Tobacco use IV drug abuse Heroin use Home Medications ?Medication ?Instructions ?Recorded ?Last Taken ?Type NK 02/19/21 Unknown History Allergy/AdvReac Type Severity Reaction Status Date / Time Penicillins (PCN) Allergy Rash Verified 11/26/23 17:03 Family History Mother Hypertension Social History household members: spouse and children Smoking Status: Heavy Smoker (>10/day) alcohol intake: current alcohol intake frequency: holidays/special occasions only substance use type: heroin, opiates and IV drugs ROS ROS ED ROS Narrative Denies recent illness. Review of Systems ROS Unobtainable: Denies due to encephalopathy Constitutional Constitutional ED: Denies chills or fever(s) ENT ENT ED: Denies ear pain Cardiovascular Cardiovascular: Denies chest pain Respiratory/Chest Respiratory/Chest: Denies cough or dyspnea Gastrointestinal Gastrointestinal: Denies abdominal pain Genitourinary Genitourinary ED: Denies dysuria or hematuria Musculoskeletal Musculoskeletal: Denies arthralgias Integumentary Denies abscess Neurologic Neurologic: Denies headache(s) Psychiatric Psychiatric: Denies anxiety or depression Endocrine Endocrinology: Denies cold intolerance Hematologic/Lymphatic Hematologic/Lymphatic: Reports none Allergic/Immunologic Allergic/Immunologic ED: Denies mouth swelling, tongue swelling or urticaria EXAM Physical Exam Narrative Exam Narrative: Well-appearing 38-year-old female. Vital signs stable afebrile. H EENT exam unremarkable. Neck nontender. Lungs clear. Heart regular rhythm no murmur. Abdomen soft nontender. Moving all 4 extremities. Neurologically she is awake and alert. With female nurse present in room I did a left breast exam. About 6:00 on her upper breast and chest there is about a dime to quarter sized density. Feels firm. It does not feel like an abscess. There is no dimpling of the skin or discoloration. There is no redness or warmth. There is no fluctuance. There is no discharge from her nipple. She does have a pierced nipple. There is no axillary lymphadenopathy. Otherwise exam unremarkable. Const Vital Signs: 11/26/23 16:36 Temperature 98 F Temperature Source Temporal Pulse Rate 85 Respiratory Rate 16 Blood Pressure 127/76 H Blood Pressure Mean 93 Pulse Ox 99 Oxygen Delivery Method Room Air Positive well nourished and well developed; Negative for cachectic, contractures or unkempt General Appearance ED: well developed and NAD; Negative for unkempt, cachectic, contractures, cyanotic, diaphoretic or pallor Nutritional Appearance: Negative for cachectic HEENT Reports moist mucous membranes Negative for trauma or tenderness Eyes PERRL General Eye ED: Negative for pale conjunctiva or scleral icterus Neck no lymphadenopathy, supple and no JVD General: Negative for tenderness Lymph Lymphatic: Negative for other Chest Wall inspection of chest normal and palpation of chest normal Chest: Negative for other Resp normal respiratory effort and clear to auscultation bilaterally Effort and Inspection: Negative for retractions Auscultation: Negative for rales, rhonchi or wheezes Cardio regular rate, regular rhythm, S1 normal heart sound, S2 normal heart sound and no murmurs GI normal to inspection, nondistended, normoactive bowel sounds, non-tender, non-distended and no masses Inspection: Negative for abdominal distention Auscultation: normoactive bowel sounds Palpation: soft; Negative for tender or guarding Back/Spine General Back: Negative for CVA tenderness Cervical Spine: Negative for cervical spine tenderness Thoracic Spine / Upper Back: Negative for thoracic spinal tenderness or paraspinal muscle tenderness Lumbar Spine / Lower Back: Negative for lumbar spinal tenderness Extremity normal to inspection General Extremety ED: Negative for edema, tenderness or other findings General Extremity: Negative for edema or other findings Neuro oriented x3 and CN's II-XII intact bilaterally Sensorium / Orientation: alert; Negative for orientation impaired Motor Exam: strength 5/5 throughout; Negative for general weakness or strength abnormal Psych mental status grossly normal Appearance: Negative for unkempt Attitude: No agitated Mood & Affect: Negative for depressed, anxious or tearful Skin no rashes or lesions noted, no wounds and skin turgor normal Skin Narrative: Left breast density about 6:00 on the upper breast. No axillary lymphadenopathy. No discoloration. No dimpling. No discharge. No redness or warmth. No fluctuance. General Skin Exam: Negative for jaundice or pallor Lesions: No lesion noted Rashes: No rashes noted Trauma: Negative for abrasion Wounds: Negative for wounds noted MDM MDM MDM Narrative Medical decision making narrative: 30-year-old female with a left breast density. She understands that we cannot get a mammogram or breast ultrasound the ER. She will follow-up as an outpatient and gave her multiple local resources to follow-up with to get a mammogram through her ultrasound. Discharge Plan Triage Chief Complaint: Other, Pain/Inj ED Provider: Lenny Godinez Dx/Rx/DC Orders Clinical Impression: Breast lump Instructions: ED Breast Lump, Uncertain Cause Prescriptions: No Action NK Primary Care Provider: Care Physician,No Primary Referrals: James Chappell MD [Med Staff - [employer] Per[employer]] - As soon as possible Alicia Emerson MD [Med Staff - Active Staff] - As soon as possible Taylor Espitia [Non-Staff] - As soon as possible Care Physician,No Primary [Primary Care Provider] - Activity Restrictions/Additional Instructions: Call and follow-up with one of the above primary care or PRODUCTION CONTROL CLERK offices and engage in for either mammogram or breast ultrasound. Absolutely necessary to follow this up. Print Language: Taiwanese Disposition Disposition: Home, Self Care
== END 2023-11-26 18:17 | disposition home or self-care (01) ==
LOC: ED 18:16
PROVIDERS: Emergency Provider Emergency Medicine; Visit Provider Emergency Medicine
DX: N63.20 Unspecified lump in the left breast, unspecified quadrant (principal); F17.200 Nicotine dependence, unspecified, uncomplicated
CPT/HCPCS: 99282

== ENCOUNTER 2024-11-21 21:31 | Emergency (ER) | payer MEDICAID, SELFPAY ==
[2024-11-21 21:33] VITALS: BP 166/92; PULSE 134; RESP 14; TEMP 36.9; O2SAT 93; BMI 28.0
[2024-11-21 22:30] VITALS: BP 132/88; PULSE 97; RESP 18; O2SAT 94
[2024-11-21] MEDS: 0.9% Normal Saline (1000mL) 1,000 ML 1000 ML IV (22:40)
[2024-11-21 22:41] LABS: Hematocrit 42.2 % (37-47); Hemoglobin 14.1 g/dL (12.0-15.0); Mean Corp Hgb Conc 33.4 g/dL (32-36); Mean Corpuscular Volume 89.8 fL (81-99); Mean Platelet Vol. 10.2 fl (6.2-12.0); Platelet Count 446 K/mm3 (150-450); RBC Distribution Width CV 12.7 % (11.6-14.6); RBC Distribution Width SD 42.1 fl (35.1-43.9); Red Blood Count 4.70 M/mm3 (4.2-5.4); White Blood Count 21.1 K/mm3 (4.4-11.0)
[2024-11-21 22:45] LABS: Mucous, Urine 0 SEEN /hpf (<or=2+); Red Blood Cells-Urine 0 SEEN /hpf (0-5)
[2024-11-21 22:49] LABS: Color, Urine Yellow (Yellow); Glucose, Dipstick Normal (Normal); Ketone-Dipstick Negative (Negative); Leukocyte Esterase-Dipstick 25 /ul (Negative); Nitrite-Dipstick Negative (Negative); Occult Blood-Urine 10 /ul (Negative); Protein-Dipstick 30 mg/dl (Negative); Specific Gravity, Urine 1.025 (1.002-1.030); Urine Bilirubin Dipstick Negative (Negative)
[2024-11-21 22:50] LABS: Internal QC Validated? YES +Cl - CLEAR BKGD; Pregnancy, Urine Negative Negative; Record Kit Lot#,Urine Preg 0000947241
[2024-11-21 23:00] VITALS: BP 148/86; PULSE 107; RESP 8; O2SAT 97
[2024-11-21 23:02] LABS: Squamous Epithelial Cells - UA 0-5 SEEN /hpf (5-10)
[2024-11-21 23:02] LABS: Alcohol, Blood (Medical)-Serum < 10.1 mg/dL (<=10.0)
[2024-11-21 23:07] LABS: Lipase 23 U/L (13-75)
[2024-11-21 23:14] LABS: AST(SGOT) 17 U/L (<=31); Alanine Aminotransfer ALT/SGPT 8 U/L (<=34); Albumin, Serum 4.2 g/dL (3.5-5.0); Alkaline Phosphatase 109 U/L (35-104); Anion Gap 14 (5-15); BUN 10 mg/dL (4-19); BUN/Creat Ratio 11.7 RATIO (10-20); Barbiturate Urine NEGATIVE (< 200 ng/mL); Benzodiazepine Urine NEGATIVE (< 200 ng/mL); Calcium,Total 9.5 mg/dL (7.6-11.0); Carbon Dioxide 20.9 mmol/L (21.0-32.0); Chloride 107 mmol/L (98-108); Estimated Creatinine Clearance 87.56 ml/min (50-250); Globulin 3.5 g/dL (2.2-4.2); Glucose 148 mg/dL (70-99); PCP Urine NEGATIVE (< 25 ng/mL); Potassium 3.6 mmol/L (3.3-5.1); THC Urine NEGATIVE (< 50 ng/mL)
[2024-11-22 00:22] VITALS: BP 131/86; PULSE 98; RESP 16; TEMP 36.6; O2SAT 99
== END 2024-11-22 00:22 | disposition home or self-care (01) ==
PROVIDERS: Emergency Provider Emergency Medicine; Visit Provider Emergency Medicine
DX: R41.0 Disorientation, unspecified (principal); F19.10 Other psychoactive substance abuse, uncomplicated; D72.829 Elevated white blood cell count, unspecified; F17.200 Nicotine dependence, unspecified, uncomplicated
CPT/HCPCS: 70450; 71045; 80053; 80307; 81001; 81025; 82077; 83605; 83690; 85027; 93005; 96361; 96374; 99285; A4216; J2405